=== PATIENT | male | born 1970 | race Caucasian/White ===

== ENCOUNTER → 2019-04-09 | Outpatient (CLI) | payer BC, SELFPAY ==
[2019-04-09 12:23] LABS: Absolute Lymphocyte Count 1.24 X10^3/ul (0.83-4.51); Absolute Neutrophil Count 2.3 X10^3/uL (2.0-7.7); Basophil# 0.02 X10^3/uL; Basophil% 0.5 % (0-1); Eosinophil# 0.13 X10^3/uL; Eosinophils% 3.2 % (0-5); Hematocrit 46.6 % (40-54); Hemoglobin 15.4 g/dl (13.0-16.5); Lymphocyte # 1.24 X10^3/ul (4.0); Lymphocyte % 30.9 % (19-41); Mean Corpuscular Hgb 30.8 pg (27.0-32.0); Mean Corpuscular Volume 93.2 fL (80-94); Mean Platelet Vol. 10.4 fl (6.2-12.0); Monocyte# 0.33 X10^3/uL; Monocyte% 8.2 % (0-10); Neutrophil # 2.28 X10^3/uL (2.7-7.7); POSITIVE COUNT NO; POSITIVE DIFFERENTIAL NO; POSITIVE MORPHOLOGY NO; Platelet Count 263 K/mm3 (150-450); RBC Distribution Width CV 12.8 % (11.6-14.6); RBC Distribution Width SD 42.7 fl (35.1-43.9)
[2019-04-09 12:54] LABS: ALB/GLOB Ratio 1.2 RATIO (0.9-2.4); AST(SGOT) 17 U/L (15-37); Alanine Aminotransfer ALT/SGPT 32 U/L (16-61); Albumin, Serum 4.1 g/dL (3.2-5.0); Alkaline Phosphatase 87 U/L (45-117); Anion Gap 6 (5-15); BUN 15 mg/dL (7-18); BUN/Creat Ratio 13.8 RATIO (10-20); Calcium,Total 8.9 mg/dL (8.5-10.1); Chloride 107 mmol/L (98-107); Cholesterol 203 mg/dL (200); Creatinine, Serum 1.09 mg/dL (0.70-1.30); EST Glomerular Filtration Rate 76 mL/min (>60); Est Glom Filt Rate - Afr Amer 92 mL/min (>60); Globulin 3.4 g/dL (2.2-4.2); Glucose 84 mg/dL (74-106); High Density Lipoprotein 41 mg/dL; Potassium 4.7 mmol/L (3.5-5.1); Protein, Total 7.5 g/dL (6.4-8.2); Sodium Level 140 mmol/L (136-145); Thyroid Stim Hormone (TSH) 2.03 uIU/mL (0.358-3.74); Triglycerides 106 mg/dL; Very Low Density Lipoprotein 21 mg/dL (5-40)
== END | disposition home or self-care (01) ==
LOC: MFPLAB 10:04
PROVIDERS: Family Provider Family Medicine; PCP Family Medicine; Referring Provider Family Medicine; Visit Provider Family Medicine
DX: Z00.00 Encounter for general adult medical examination without abnormal findings (principal)
CPT/HCPCS: 36415; 80053; 80061; 84443; 85025

== ENCOUNTER → 2019-10-30 10:28 | Outpatient (CLI) | payer BC, SELFPAY ==
[2019-10-30 12:25] LABS: Absolute Lymphocyte Count 1.07 X10^3/uL (0.83-4.51); Absolute Neutrophil Count 2.8 X10^3/uL (2.0-7.7); Basophil# 0.05 X10^3/uL; Basophil% 1.1 % (0-1); Eosinophil# 0.15 X10^3/uL; Eosinophils% 3.4 % (0-5); Hematocrit 46.8 % (40-54); Hemoglobin 15.3 g/dL (13.0-16.5); Lymphocyte # 1.07 X10^3/ul (4.0); Lymphocyte % 23.9 % (19-41); Mean Corp Hgb Conc 32.7 g/dL (32-36); Mean Corpuscular Hgb 30.5 pg (27.0-32.0); Mean Corpuscular Volume 93.4 fL (80-94); Mean Platelet Vol. 10.2 fl (6.2-12.0); Monocyte% 8.9 % (0-10); NRBC Flagged by Analyzer 0 % (0-5); Neutrophil # 2.78 X10^3/uL (2.7-7.7); Neutrophil % 62.3 % (47-70); Platelet Count 323 K/mm3 (150-450); RBC Distribution Width CV 12.3 % (11.6-14.6); RBC Distribution Width SD 42.5 fl (35.1-43.9); Red Blood Count 5.01 M/mm3 (4.6-6.2); White Blood Count 4.5 K/mm3 (4.4-11.0)
[2019-10-30 12:27] LABS: Erythrocyte Sedimentation Rate 20 mm/hr (0-20)
[2019-10-30 12:36] LABS: ALB/GLOB Ratio 0.9 RATIO (0.9-2.4); AST(SGOT) 22 U/L (15-37); Alanine Aminotransfer ALT/SGPT 51 U/L (16-61); Albumin, Serum 4.1 g/dL (3.2-5.0); Alkaline Phosphatase 117 U/L (45-117); Anion Gap 5 (5-15); BUN 19 mg/dL (7-18); BUN/Creat Ratio 17.3 RATIO (10-20); Calcium,Total 9.5 mg/dL (8.5-10.1); Chloride 106 mmol/L (98-107); EST Glomerular Filtration Rate 75 mL/min (>60); Est Glom Filt Rate - Afr Amer 91 mL/min (>60); Globulin 4.4 g/dL (2.2-4.2); Glucose 95 mg/dL (74-106); Potassium 4.9 mmol/L (3.5-5.1); Protein, Total 8.5 g/dL (6.4-8.2); Rheumatoid Factor < 10.0 IU/mL (<15); Sodium Level 139 mmol/L (136-145)
[2019-10-30 12:47] LABS: Vitamin D,25 Hydroxy 25.3 ng/mL (29.95-100.01)
[2019-10-31 15:47] LABS: ANTINUCLEAR ANTIBODIES DIRECT Positive (Negative)
== END ==
PROVIDERS: Family Provider Family Medicine; PCP Family Medicine; Referring Provider Family Medicine; Visit Provider Nurse Practitioner Family
DX: M79.10 Myalgia, unspecified site (principal)
CPT/HCPCS: 36415; 80053; 82306; 84443; 85025; 85652; 86038; 86140; 86431

== ENCOUNTER → 2019-12-17 14:27 | Outpatient (CLI) | payer BC, SELFPAY ==
[2019-12-17 15:49] LABS: EXAGEN MAILED SPECIMEN
[2019-12-17 17:39] LABS: Absolute Lymphocyte Count 1.44 X10^3/uL (0.83-4.51); Absolute Neutrophil Count 3.8 X10^3/uL (2.0-7.7); Basophil# 0.06 X10^3/uL; Eosinophil# 0.16 X10^3/uL; Eosinophils% 2.7 % (0-5); Hematocrit 44.3 % (40-54); Hemoglobin 14.7 g/dL (13.0-16.5); Lymphocyte # 1.44 X10^3/ul (4.0); Lymphocyte % 24.4 % (19-41); Mean Corp Hgb Conc 33.2 g/dL (32-36); Mean Corpuscular Hgb 30.9 pg (27.0-32.0); Mean Corpuscular Volume 93.1 fL (80-94); Mean Platelet Vol. 9.9 fl (6.2-12.0); Monocyte# 0.49 X10^3/uL; Monocyte% 8.3 % (0-10); NRBC Flagged by Analyzer 0 % (0-5); Neutrophil # 3.75 X10^3/uL (2.7-7.7); Neutrophil % 63.6 % (47-70); Platelet Count 299 K/mm3 (150-450); RBC Distribution Width CV 12.4 % (11.6-14.6); RBC Distribution Width SD 42.3 fl (35.1-43.9); Red Blood Count 4.76 M/mm3 (4.6-6.2); White Blood Count 5.9 K/mm3 (4.4-11.0)
[2019-12-17 17:45] LABS: Color, Urine Yellow (Yellow); Glucose, Dipstick Normal (Normal); Ketone-Dipstick Negative (Negative); Leukocyte Esterase-Dipstick Negative /ul (Negative); Nitrite-Dipstick Negative (Negative); Occult Blood-Urine Negative /ul (Negative); Protein-Dipstick Negative (Negative); Specific Gravity, Urine 1.015 (1.002-1.030); Urine Bilirubin Dipstick Negative (Negative); Urine Clarity Sl. Cloudy (Clear); Urine Urobilinogen Normal (Normal)
[2019-12-17 18:06] LABS: AST(SGOT) 25 U/L (15-37); Alanine Aminotransfer ALT/SGPT 48 U/L (16-61); Albumin, Serum 4.1 g/dL (3.2-5.0); Alkaline Phosphatase 114 U/L (45-117); Anion Gap 5 (5-15); BUN 18 mg/dL (7-18); BUN/Creat Ratio 17.6 RATIO (10-20); Calcium,Total 9.5 mg/dL (8.5-10.1); Chloride 105 mmol/L (98-107); Creatinine, Serum 1.02 mg/dL (0.70-1.30); EST Glomerular Filtration Rate 82 mL/min (>60); Est Glom Filt Rate - Afr Amer 99 mL/min (>60); Globulin 4.3 g/dL (2.2-4.2); Glucose 82 mg/dL (74-106); Potassium 4.1 mmol/L (3.5-5.1); Protein, Total 8.4 g/dL (6.4-8.2); Sodium Level 137 mmol/L (136-145)
[2019-12-17 18:13] LABS: Protein, Urine (Random) 13.4 mg/dL (<11.9); Protein:Creat Ratio 113 mg/g CRE (0-200)
[2019-12-18 11:24] LABS: Hepatitis B Surface Antibody Non-Reactive; Hepatitis B Surface Antigen Non-Reactive (Nonreactive); Hepatitis C Antibody Non-Reactive (Nonreactive)
[2019-12-19 09:11] LABS: Hepatitis B Core AB IgM Negative (Negative)
== END ==
LOC: MTLAB 14:31
PROVIDERS: PCP Family Medicine; Referring Provider Internal Medicine Rheumatology; Visit Provider Internal Medicine Rheumatology
DX: M06.4 Inflammatory polyarthropathy (principal); R76.8 Other specified abnormal immunological findings in serum
CPT/HCPCS: 36415; 80053; 81002; 82570; 84156; 85025; 86705; 86706; 86803; 87340

== ENCOUNTER → 2020-08-26 17:24 | Outpatient (CLI) | payer BC, SELFPAY | PROVIDERS: PCP Family Medicine | DX: Z01.812 Encounter for preprocedural laboratory examination (principal); Z11.59 Encounter for screening for other viral diseases | CPT/HCPCS: 87635; C9803; U0003 ==

== ENCOUNTER → 2020-08-27 11:22 | Outpatient (CLI) | payer BC, SELFPAY ==
[2020-08-27 15:25] LABS: Absolute Lymphocyte Count 1.17 X10^3/uL (0.83-4.51); Basophil# 0.02 X10^3/uL; Basophil% 0.5 % (0-1); Eosinophil# 0.17 X10^3/uL; Eosinophils% 4.6 % (0-5); Hematocrit 45.9 % (40-54); Hemoglobin 15.3 g/dL (13.0-16.5); Lymphocyte # 1.17 X10^3/ul (4.0); Lymphocyte % 31.4 % (19-41); Mean Corp Hgb Conc 33.3 g/dL (32-36); Mean Corpuscular Hgb 31.4 pg (27.0-32.0); Mean Corpuscular Volume 94.1 fL (80-94); Mean Platelet Vol. 10.6 fl (6.2-12.0); Monocyte# 0.38 X10^3/uL; Monocyte% 10.2 % (0-10); NRBC Flagged by Analyzer 0 % (0-5); Neutrophil # 1.99 X10^3/uL (2.7-7.7); Neutrophil % 53.3 % (47-70); Platelet Count 285 K/mm3 (150-450); RBC Distribution Width CV 11.8 % (11.6-14.6); RBC Distribution Width SD 40.8 fl (35.1-43.9); Red Blood Count 4.88 M/mm3 (4.6-6.2); White Blood Count 3.7 K/mm3 (4.4-11.0)
[2020-08-27 15:41] LABS: Anion Gap 5 (5-15); BUN 14 mg/dL (7-18); BUN/Creat Ratio 13.6 RATIO (10-20); Calcium,Total 9.2 mg/dL (8.5-10.1); Chloride 106 mmol/L (98-107); Creatinine, Serum 1.03 mg/dL (0.70-1.30); EST Glomerular Filtration Rate 81 mL/min (>60); Est Glom Filt Rate - Afr Amer 98 mL/min (>60); Glucose 89 mg/dL (74-106); Potassium 4.3 mmol/L (3.5-5.1); Sodium Level 137 mmol/L (136-145)
== END ==
PROVIDERS: PCP Family Medicine; Referring Provider Family Medicine; Visit Provider Family Medicine
DX: Z01.818 Encounter for other preprocedural examination (principal)
CPT/HCPCS: 36415; 80048; 85025

== ENCOUNTER → 2023-08-18 | Outpatient (CLI) | payer OTHER, SELFPAY ==
[2023-08-18 10:04] LABS: Hematocrit 48.2 % (40-54); Hemoglobin 16.1 g/dL (13.0-16.5); Mean Corp Hgb Conc 33.4 g/dL (32-36); Mean Corpuscular Hgb 32.1 pg (27.0-32.0); Platelet Count 272 K/mm3 (150-450); RBC Distribution Width CV 12.1 % (11.6-14.6); RBC Distribution Width SD 42.4 fl (35.1-43.9); Red Blood Count 5.02 M/mm3 (4.6-6.2); White Blood Count 4.2 K/mm3 (4.4-11.0)
[2023-08-18 10:19] LABS: ALB/GLOB Ratio 1.1 RATIO (0.9-2.4); AST(SGOT) 14 U/L (15-37); Alanine Aminotransfer ALT/SGPT 33 U/L (16-61); Albumin, Serum 4.3 g/dL (3.2-5.0); Alkaline Phosphatase 88 U/L (45-117); Anion Gap 4 (5-15); BUN 19 mg/dL (7-18); BUN/Creat Ratio 16.1 RATIO (10-20); Calcium,Total 9.6 mg/dL (8.5-10.1); Chloride 107 mmol/L (98-107); Cholesterol 253 mg/dL (200); Creatinine, Serum 1.18 mg/dL (0.70-1.30); EST Glomerular Filtration Rate 68 mL/min (>60); Est Glom Filt Rate - Afr Amer 83 mL/min (>60); Glucose 109 mg/dL (74-106); High Density Lipoprotein 47 mg/dL; Potassium 4.7 mmol/L (3.5-5.1); Protein, Total 8.3 g/dL (6.4-8.2); Sodium Level 138 mmol/L (136-145); Triglycerides 142 mg/dL; Very Low Density Lipoprotein 28 mg/dL (5-40)
[2023-08-18 10:35] LABS: Vitamin D,25 Hydroxy 34.5 ng/mL
== END | disposition home or self-care (01) ==
LOC: MFPLAB 08:49
PROVIDERS: PCP Family Medicine; Visit Provider Family Medicine
DX: Z00.00 Encounter for general adult medical examination without abnormal findings (principal); E55.9 Vitamin D deficiency, unspecified
CPT/HCPCS: 36415; 80053; 80061; 82306; 83036; 85027

== ENCOUNTER 2023-12-08 08:02 | Day surgery (SDC) | payer OTHER, SELFPAY ==
[2023-12-08 08:25] VITALS: BP 127/81; PULSE 67; RESP 16; TEMP 36.8; O2SAT 98; BMI 24.0
[2023-12-08] MEDS: Lactated Ringers 1,000 ML 15 ML IV (08:34)
--- NOTE | 2023-12-08 08:47 | HP.PCM_ITS ---
HPI - General HPI Narrative GABRIELA PAPPAS, is a 53 M who presents for screening colonoscopy. The patient has never had a colonoscopy in the past. He denies any abdominal pain or blood in stool. He has no family history of colon cancer. He is on no blood thinners. [facility] Medical History (Updated 12/07/23 @ 08:41 by Alejandro Manzanares) Non-smoker Ruptured ear drum Shoulder injury Wears glasses Home Medications sildenafil 100 mg tablet 50 mg PO DAILY PRN sexual activity 10/24/23 [History Last Taken Unknown] Allergy/AdvReac Type Severity Reaction Status Date / Time No Known Allergies Allergy Verified 12/08/23 08:25 Social History (Updated 10/24/23 @ 11:02 by Nanci Flores) household members: significant other current occupational status: employed current occupation: [employer] Smoking Status: Never smoker alcohol intake: current alcohol intake frequency: holidays/special occasions only Past Medical/Surgical History Planned Operation Planned Operative Procedure/s: COLONOSCOPY Previous Hospitalizations/Surgeries HX Hospitalizations: No Any Problems With Anesthesia: No You/Your Family Experience Fever (Hyperthermia) With Anes: No Cholinesterase deficiency: No Cardiovascular Hx Hypertension: No Respiratory Hx Sleep Apnea: No Hx Respiratory Tract Infection/Cold (presently): No Do You Snore Loudly (louder than talking or can be heard): No Do You Often Feel Tired/ Fatigued/ Sleepy Dring Daytime?: No Has Anyone Observed You Stop Breathing During Sleep?: No Result (for STOP score): Negative Smoking Status: Never smoker Neurological Does patient have nerve stimulator: No Miscellaneous Recent Exposure to Contagious Disease: No Allergies No Known Allergies Allergy (Verified 12/08/23 08:25) Vital Signs Vital Signs Vital Signs: 12/08/23 08:25 12/08/23 08:25 Temperature 98.2 F Temperature Source Temporal Pulse Rate 67 Respiratory Rate 16 Respiratory Pattern Normal Blood Pressure 127/81 H Blood Pressure Mean 96 Blood Pressure Source Monitor Blood Pressure Position Semi-Fowlers Blood Pressure Location Left Arm Pulse Ox 98 Oxygen Delivery Method Room Air Weight Weight: 163 lb 2.273 oz Body Mass Index (BMI) 24.0 Physical Exam Const alert and oriented x3 HEENT normocephalic Eyes PERRL Resp normal respiratory effort and normal air movement Cardio regular rate and regular rhythm GI soft to palpation, non-tender and non-distended Extremity normal to inspection Assessment & Plan Assessment/Plan (1) Encounter for screening for malignant neoplasm of colon: PLAN: I explained endoscopy in detail to the patient. I explained the risks including but not limited to stroke or heart attack with anesthesia, perforation of the GI tract, bleeding, infection. I explained that any of these could necessitate further emergency surgery. The patient understands and all questions were answered sufficiently. The patient wishes to proceed with procedure. Blue Eddy MD Pager: [facility] [address] [place] [address] [address] [place] [address] Office: Surgery Risks - Colonoscopy Risks Include but are not Limited To: Risks include but are not limited to: Bleeding, perforation requiring further surgery, inability to complete colonoscopy requiring barium enema.
[2023-12-08 09:11] VITALS: BP 127/81; BP 94/75; PULSE 64; RESP 16; TEMP 36.6; O2SAT 97
--- NOTE | 2023-12-08 09:12 | OP.CCLET_ITS ---
12/08/2023 Shashank Vuong [address] [place] [address] Re : Colonoscopy procedure for Gladys Holden Dear Dr. Vuong This procedure was performed on Friday, December 08, 2023. My impressions and recommendations are as follows: Impressions : - The entire examined colon is normal on direct and retroflexion views. - No specimens collected. Recommendations : - Discharge patient to home. - Resume previous diet. - Continue present medications. - Repeat colonoscopy in 10 years for screening purposes. My findings are described in the full procedure note, which is enclosed. If I can be of further assistance, please feel free to contact me at Doctor phone number(s): , Work: . Sincerely, Blue Eddy MD 12/08/2023 9:12:04 AM This report has been signed electronically.
--- NOTE | 2023-12-08 09:12 | OP.COLON_ITS ---
Patient Name: Gladys Holden Procedure Date: 12/08/2023 8:49 AM Date of : 1970 Age: 53 Procedure: Colonoscopy Indications: Screening for colorectal malignant neoplasm Providers: Blue Eddy MD Medicines: Monitored Anesthesia Care Patient Profile: This is a 53 year old male. Refer to note in patient chart for documentation of history and physical. Last Colonoscopy: none. The patient's first colonoscopy is today. Complications: No immediate complications. Procedure: Pre-Anesthesia Assessment: - Prior to the procedure, a History and Physical was performed, and patient medications and allergies were reviewed. The patient's tolerance of previous anesthesia was also reviewed. The risks and benefits of the procedure and the sedation options and risks were discussed with the patient. All questions were answered, and informed consent was obtained. Prior Anticoagulants: The patient has taken no anticoagulant or antiplatelet agents. ASA Grade Assessment: II - A patient with mild systemic disease. After reviewing the risks and benefits, the patient was deemed in satisfactory condition to undergo the procedure. After I obtained informed consent, the scope was passed under direct vision. Throughout the procedure, the patient's blood pressure, pulse, and oxygen saturations were monitored continuously. The Colonoscope was introduced through the anus and advanced to the cecum, identified by appendiceal orifice and ileocecal valve. The colonoscopy was performed without difficulty. The patient tolerated the procedure well. The quality of the bowel preparation was good. The ileocecal valve, appendiceal orifice, and rectum were photographed. Scope In: 8:58:32 AM Scope Withdrawal Time 0 hours 6 minutes 2 seconds Scope Out: 9:08:04 AM Total Procedure Duration Time 0 hours 9 minutes 32 seconds Findings: The entire examined colon appeared normal on direct and retroflexion views. Impression: - The entire examined colon is normal on direct and retroflexion views. - No specimens collected. Recommendation: - Discharge patient to home. - Resume previous diet. - Continue present medications. - Repeat colonoscopy in 10 years for screening purposes. Procedure Code(s): --- Professional --- 01991, Colonoscopy, flexible; diagnostic, including collection of specimen(s) by brushing or washing, when performed (separate procedure) Diagnosis Code(s): --- Professional --- Z12.11, Encounter for screening for malignant neoplasm of colon CPT copyright 2021 [employer]. All rights reserved. The codes documented in this report are preliminary and upon police aide review may be revised to meet current compliance requirements. Blue Eddy MD 12/08/2023 9:12:04 AM This report has been signed electronically. Number of Addenda: 0 Note Initiated On: 12/08/2023 8:49 AM
[2023-12-08 09:15] VITALS: BP 127/81; BP 93/73; PULSE 62; RESP 16; O2SAT 97
[2023-12-08 09:20] VITALS: BP 127/81; BP 98/77; PULSE 64; RESP 16; O2SAT 94
[2023-12-08 09:22] VITALS: BP 106/74; BP 127/81; PULSE 69; RESP 16; TEMP 36.6; O2SAT 94
[2023-12-08 09:32] VITALS: BP 127/81
== END 2023-12-08 10:05 | disposition home or self-care (01) ==
LOC: EN 08:04 → AC 08:06
PROVIDERS: PCP Family Medicine; Referring Provider Family Medicine; Visit Provider Surgery
PROC: 0DJD8ZZ Inspection of Lower Intestinal Tract, Via Natural or Artificial Opening Endoscopic (ICD-10-PCS; CPT 45378; principal; 2023-12-08 08:55)
DX: Z12.11 Encounter for screening for malignant neoplasm of colon (principal)
CPT/HCPCS: 45378; J2405

== ENCOUNTER → 2025-02-05 | Outpatient (CLI) | payer SELFPAY | END | disposition home or self-care (01) | LOC: MFPLAB 12:16 → LABSPEC 12:19 | PROVIDERS: PCP Family Medicine; Referring Provider Family Medicine; Visit Provider Family Medicine | DX: N39.0 Urinary tract infection, site not specified (principal) | CPT/HCPCS: 87086; 87088; 87186 ==

== ENCOUNTER 2025-04-11 16:20 | Outpatient (CLI) | payer SELFPAY ==
[2025-04-11 16:24] LABS: Bacteria 0 SEEN /hpf (None Seen); Mucous, Urine 0 SEEN /hpf (<or=2+)
[2025-04-11 18:05] LABS: Absolute Lymphocyte Count 1.93 X10^3/uL (0.83-4.51); Absolute Neutrophil Count 2.8 X10^3/uL (2.0-7.7); Basophil# 0.04 X10^3/uL; Basophil% 0.7 % (0-1); Eosinophil# 0.13 X10^3/uL; Eosinophils% 2.4 % (0-5); Hematocrit 44.2 % (40-54); Hemoglobin 14.9 g/dL (13.0-16.5); Lymphocyte # 1.93 X10^3/ul (0.83-4.51); Lymphocyte % 35.5 % (19-41); Mean Corp Hgb Conc 33.7 g/dL (32-36); Mean Corpuscular Hgb 31.4 pg (27.0-32.0); Mean Corpuscular Volume 93.2 fL (80-94); Mean Platelet Vol. 9.9 fl (6.2-12.0); Monocyte# 0.49 X10^3/uL; NRBC Flagged by Analyzer 0 % (0-5); Neutrophil # 2.84 X10^3/uL (2.7-7.7); Neutrophil % 52.2 % (47-70); Platelet Count 261 K/mm3 (150-450); RBC Distribution Width CV 12.5 % (11.6-14.6); Red Blood Count 4.74 M/mm3 (4.6-6.2); White Blood Count 5.4 K/mm3 (4.4-11.0)
[2025-04-11 18:26] LABS: ALB/GLOB Ratio 1.6 RATIO (0.9-2.4); AST(SGOT) 28 U/L (<=37); Alanine Aminotransfer ALT/SGPT 39 U/L (<=46); Albumin, Serum 4.7 g/dL (3.5-5.0); Alkaline Phosphatase 79 U/L (40-129); Anion Gap 12 (5-15); BUN 19 mg/dL (4-19); BUN/Creat Ratio 16.7 RATIO (10-20); Calcium,Total 9.6 mg/dL (7.6-11.0); Carbon Dioxide 23.3 mmol/L (21.0-32.0); Chloride 103 mmol/L (98-108); Cholesterol 242 mg/dL (<=200); Creatinine, Serum 1.14 mg/dL (0.70-1.20); EST Glomerular Filtration Rate 76 (>60); Glucose 84 mg/dL (70-99); High Density Lipoprotein 53 mg/dL; Low Density Lipoprotein Calc. 175 mg/dL; Protein, Total 7.7 g/dL (5.9-8.4); Sodium Level 138 mmol/L (133-145); Triglycerides 70 mg/dL; Very Low Density Lipoprotein 14 mg/dL (5-40); cholesterol:hdl ratio screen 4.61
[2025-04-11 18:29] LABS: Glucose, Dipstick Normal (Normal); Ketone-Dipstick Negative (Negative); Leukocyte Esterase-Dipstick 25 /ul (Negative); Nitrite-Dipstick Negative (Negative); Occult Blood-Urine Negative /ul (Negative); Protein-Dipstick 15 mg/dl (Negative); Urine Bilirubin Dipstick Negative (Negative); Urine Urobilinogen Normal (Normal)
[2025-04-11 18:31] LABS: Vitamin D,25 Hydroxy 32.5 ng/mL (30-100)
[2025-04-11 18:44] LABS: Color, Urine Yellow (Yellow); Urine Clarity Sl Cldy (Clear)
[2025-04-11 20:06] LABS: Red Blood Cells-Urine 0-5 SEEN /hpf (0-5); Squamous Epithelial Cells - UA 0-5 SEEN /hpf (0-5); White Blood Cells 0-5 SEEN /hpf (0-5)
== END 2025-04-11 23:59 | disposition home or self-care (01) ==
LOC: MTLAB 16:21
PROVIDERS: PCP Family Medicine; Referring Provider Family Medicine; Visit Provider Family Medicine
DX: Z00.00 Encounter for general adult medical examination without abnormal findings (principal); Z12.5 Encounter for screening for malignant neoplasm of prostate
CPT/HCPCS: 36415; 80053; 80061; 81001; 82306; 84153; 84443; 85025; G0103

== ENCOUNTER → 2025-10-03 | Outpatient (CLI) | payer SELFPAY ==
[2025-10-03 17:39] LABS: Hematocrit 44.4 % (40-54); Hemoglobin 15.1 g/dL (13.0-16.5); Immature Granulocytes Count 0.010 X10^3/uL (0.0-0.0); Mean Corp Hgb Conc 34.0 g/dL (32-36); Mean Corpuscular Volume 93.3 fL (80-94); Mean Platelet Vol. 9.9 fl (6.2-12.0); NRBC Flagged by Analyzer 0 % (0-5); Platelet Count 275 K/mm3 (150-450); RBC Distribution Width CV 11.7 % (11.6-14.6); RBC Distribution Width SD 40.3 fl (35.1-43.9); Red Blood Count 4.76 M/mm3 (4.6-6.2); White Blood Count 6.1 K/mm3 (4.4-11.0)
--- OUTSIDE RECORDS SUMMARY | 2025-10-03 17:51 | XMS RPT_ITS | CCD ---
Author Organization [facility] Care Team Providers Care Ornament Stitcher Name Role Phone Dr. Tristen Perez Primary Care Provider Nanci Flores Attending Provider Unavailable Dr. Tristen Perez Referring Provider Dr. Blue Eddy Attending Provider [phone] Dr. Blue Eddy Other Provider ELADIO MCDONNELL MD Admitting Unavailable TRISTEN PEREZ Referring Unavailable TRISTEN PEREZ Consulting Unavailable ELADIO MCDONNELL MD Attending Unavailable ELADIO MCDONNELL MD Primary Care Unavailable PROVIDER, UNKNOWN Consulting Unavailable Dr. Tristen Perez MD Primary Care Provider [phone] Dr. Tristen Perez MD Attending Provider Dr. Tristen Perez MD Referring Provider Tristen Perez Referring Unavailable Tristen Perez Primary Care Unavailable Tristen Perez Attending Unavailable Tristen Perez Referring Unavailable Tristen Perez Primary Care Unavailable Tristen Perez Attending Unavailable Medications Current Medications Medication Drug Class(es) Dates Sig (Normalized) Sig (Original) sildenafil 100 mg oral tablet (3 sources) Phosphodiesterase 5 Inhibitor Start: 10-24-2023 Sildenafil 100 mg tablet Active 50 mg PO DAILY as needed for sexual activity October 24, 2023 1:00am administer 30 minutes to 4 hours before activity Start: 10-24-2023 Sildenafil Act tamara 50 MG PO DAILY October 24, 2023 12:00am administer 30 minutes to 4 hours before activity Problems Problem Classification Problem Date Documented Da te Episodic/Chronic Other screening for suspected conditions (not mental disorders or infectious disease) (4 sources) Patient encounter status; Translations: [Encounter for screening for malignant neoplasm of colon] 10-24-2023 Episodic Urinary tract infections (1 source) Urinary tract infection, site not specified; Translations: [Urinary tract infection, site not specified] Onset: 02-13-2025 Episodic Results Test Name Value Interpretation Reference Range Facility Absolute lymphocyte countOrd ered By: Tristen Perez on 04-11-2025 Lymphocytes Auto (Unsp spec) [#/Vol] 1.93 10*3/uL 0.83-4.51 [facility] Absolute neutrophil countOrd ered By: Tristen Perez on 04-11-2025 Neutrophils (Bld) [#/Vol] 2.8 10*3/uL 2.0-7.7 [facility] Anion gap in Serum or Plasma Ordered By: Tristen Perez on 04-11-2025 Anion gap [Moles/Vol] 12 mmol/L 5-15 [facility] Automated lymphocyte count a s percentage of total leukocytesOrdered By: Tristen Perez on 04-11-2025 Lymphocytes/100 WBC Auto (Unsp spec) 35.5 % 19- [facility] BUN/creatinine ratioOrdered By: Tristen Perez on 04-11-2025 Urea nitrogen/Creatinine [Mass ratio] 16.7 mg/mg 10-20 [facility] Basophil percentageOrdered B y: Tristen Perez on 04-11-2025 Basophils/100 WBC (Bld) 0.7 % 0-1 [facility] Bilirubin Test strip Ql (U)O rdered By: Tristen Perez on 04-11-2025 Bilirubin Ql (U) Negative Negative [facility] Bilirubin, totalOrdered By: Tristen Perez on 04-11-2025 Bilirubin [Mass/Vol] 0.60 mg/dL 0.00-1.30 [facility] CBC W/Diff, Automatedon 03-21 Absolute Lymph 1.93 X10 3/uL Normal 0.83-4.51 [facility] Comment on above: Order Comment: Order Date: 04/11/25 Order Info: [id number] - CBCD Performed By: #### L 500.4100, L501.9520, L100.0100, L501.9910, L500.4050 #### [facility] [address] [place], [address] Absolute Neut 2.8 X10 3/uL Normal 2.0-7.7 [facility] Comment on above: Order Comment: Order Date: 04/11/25 Order Info: [id number] - CBCD Performed By: #### L 500.4100, L501.9520, L100.0100, L501.9910, L500.4050 #### [facility] [address] [place], [address] Basophils/100 WBC (Bld) 0.7 % Normal 0-1 [facility] Comment on above: Order Comment: Order Date: 04/11/25 Order Info: 0184-1 - CBCD Performed By: #### L 500.4100, L501.9520, L100.0100, L501.9910, L500.4050 #### [facility] [address] [place], [address] Eosinophils/100 WBC (Bld) 2.4 % Normal 0-5 [facility] Comment on above: Order Comment: Order Date: 04/11/25 Order Info: [id number] - CBCD Performed By: #### L 500.4100, L501.9520, L100.0100, L501.9910, L500.4050 #### [facility] [address] [place], [address] Erythrocyte distribution width (RBC) [Ratio] 12.5 % Normal 11.6-14.6 [facility] Comment on above: Order Comment: Order Date: 04/11/25 Order Info: 0184-1 - CBCD Performed By: #### L 500.4100, L501.9520, L100.0100, L501.9910, L500.4050 #### [facility] [address] [place], [address] Hematocrit (Bld) [Volume fraction] 44.2 % Normal 40-54 [facility] Comment on above: Order Comment: Order Date: 04/11/25 Order Info: 0184-1 - CBCD Performed By: #### L 500.4100, L501.9520, L100.0100, L501.9910, L500.4050 #### [facility] [address] [place], [address] Hemoglobin (Bld) [Mass/Vol] 14.9 g/dL Normal 13.0-16.5 [facility] Comment on above: Order Comment: Order Date: 04/11/25 Order Info: 0184-1 - CBCD Performed By: #### L 500.4100, L501.9520, L100.0100, L501.9910, L500.4050 #### [facility] [address] [place], [address] IG% 0.200 Normal 0.0-0.9 [facility] Comment on above: Order Comment: Order Date: 04/11/25 Order Info: 0184-1 - CBCD Result Comment: IG% - Immature Granulocytes (promyelocytes, myelocytes and metamyelocytes) > 1% indicates that a LEFT SHIFT is Present. Performed By: #### L 500.4100, L501.9520, L100.0100, L501.9910, L500.4050 #### [facility] [address] [place], [address] Lymphocytes/100 WBC (Bld) 35.5 % Normal 19-41 [facility] Comment on above: Order Comment: Order Date: 04/11/25 Order Info: 0184-1 - CBCD Performed By: #### L 500.4100, L501.9520, L100.0100, L501.9910, L500.4050 #### [facility] [address] [place], [address] MCH (RBC) [Entitic mass] 31.4 pg Normal 27.0-32.0 [facility] Comment on above: Order Comment: Order Date: 04/11/25 Order Info: 0184-1 - CBCD Performed By: #### L 500.4100, L501.9520, L100.0100, L501.9910, L500.4050 #### [facility] [address] [place], [address] MCHC (RBC) [Mass/Vol] 33.7 g/dL Normal 32-36 [facility] Comment on above: Order Comment: Order Date: 04/11/25 Order Info: 0184-1 - CBCD Performed By: #### L 500.4100, L501.9520, L100.0100, L501.9910, L500.4050 #### [facility] [address] [place], [address] MCV (RBC) [Entitic vol] 93.2 fL Normal 80-94 [facility] Comment on above: Order Comment: Order Date: 04/11/25 Order Info: 0184-1 - CBCD Performed By: #### L 500.4100, L501.9520, L100.0100, L501.9910, L500.4050 #### [facility] [address] [place], [address] Monocytes/100 WBC (Bld) 9.0 % Normal 0-10 [facility] Comment on above: Order Comment: Order Date: 04/11/25 Order Info: 0184-1 - CBCD Performed By: #### L 500.4100, L501.9520, L100.0100, L501.9910, L500.4050 #### [facility] [address] [place], [address] Neutrophils/100 WBC (Bld) 52.2 % Normal 47-70 [facility] Comment on above: Order Comment: Order Date: 04/11/25 Order Info: 0184-1 - CBCD Performed By: #### L 500.4100, L501.9520, L100.0100, L501.9910, L500.4050 #### [facility] [address] [place], [address] Nucleated RBC (Bld) [#/Vol] 0 10*3/uL Normal 0-5 [facility] Comment on above: Order Comment: Order Date: 04/11/25 Order Info: 0184-1 - CBCD Performed By: #### L 500.4100, L501.9520, L100.0100, L501.9910, L500.4050 #### [facility] [address] [place], [address] Platelet mean volume (Bld) [Entitic vol] 9.9 fL Normal 6.2-12.0 [facility] Comment on above: Order Comment: Order Date: 04/11/25 Order Info: 0184-1 - CBCD Performed By: #### L 500.4100, L501.9520, L100.0100, L501.9910, L500.4050 #### [facility] [address] [place], [address] Platelets (Bld) [#/Vol] 261 10*3/uL Normal 150-450 [facility] Comment on above: Order Comment: Order Date: 04/11/25 Order Info: 0184-1 - CBCD Performed By: #### L 500.4100, L501.9520, L100.0100, L501.9910, L500.4050 #### [facility] [address] [place], [address] RBC (Bld) [#/Vol] 4.74 10*6/uL Normal 4.6-6.2 [facility] Comment on above: Order Comment: Order Date: 04/11/25 Order Info: 0184-1 - CBCD Performed By: #### L 500.4100, L501.9520, L100.0100, L501.9910, L500.4050 #### [facility] [address] [place], [address] RDW SD 43.0 fl Normal 35.1-43.9 [facility] Comment on above: Order Comment: Order Date: 04/11/25 Order Info: 0184-1 - CBCD Performed By: #### L 500.4100, L501.9520, L100.0100, L501.9910, L500.4050 #### [facility] [address] [place], [place], [address] WBC (Bld) [#/Vol] 5.4 10*3/uL Normal 4.4-11.0 [facility] Comment on above: Order Comment: Order Date: 04/11/25 Order Info: [id number]- - CBCD Performed By: #### L 500.4100, L501.9520, L100.0100, L501.9910, L500.4050 #### [facility] [address] [facility] [place], [place], [id number] Calculated very low density lipoprotein (VLDL) cholesterol measurementOrdered By: Tristen Perez on 04-11-2025 Calculated very low density lipoprotein (VLDL) cholesterol measurement 14 mg/dL 5-40 [facility] Carbon dioxide, total [Moles /volume] in Central venous bloodOrdered By: Tristen Perez on 04-11-2025 CO2 [Moles/Vol] 23.3 mmol/L 21.0-32.0 [facility] Chloride assayOrdered By: Nirali Perez on 04-11-2025 Chloride [Moles/Vol] 103 mmol/L 98-108 [facility] Comprehensive Metabolic Prof ilon 04-11-2025 Albumin [Mass/Vol] 4.7 g/dL Normal 3.5-5.0 [facility] Comment on above: Order Comment: Order Date: 04/11/25 Order Info: [id number] - CMP Order Info: [id number] - LIPID Order Info: [id number] - TSH Order Info: 2857-1 - PSA Performed By: #### L 500.4100, L501.9520, L100.0100, L501.9910, L500.4050 #### [facility] [address] [place], [address] Albumin/Globulin [Mass ratio] 1.6 {ratio} Normal 0.9-2.4 [facility] Comment on above: Order Comment: Order Date: 04/11/25 Order Info: 86-1 - CMP Order Info: [id number] - LIPID Order Info: [id number] - TSH Order Info: 2856-1 - PSA Performed By: #### L 500.4100, L501.9520, L100.0100, L501.9910, L500.4050 #### [facility] [address] [place], [address] ALK PHOS 79 U/L Normal 40-129 [facility] Comment on above: Order Comment: Order Date: 04/11/25 Order Info: 785-1 - CMP Order Info: - LIPID Order Info: [id number] - TSH Order Info: 1 - PSA Performed By: #### L 500.4100, L501.9520, L100.0100, L501.9910, L500.4050 #### [facility] [address] [place], [address] ALT [Catalytic activity/Vol] 39 U/L Normal <=46 [facility] Comment on above: Order Comment: Order Date: 04/11/25 Order Info: 785- - CMP Order Info: [id number] - LIPID Order Info: [id number] - TSH Order Info: 2856-1 - PSA Performed By: #### L 500.4100, L501.9520, L100.0100, L501.9910, L500.4050 #### [facility] [address] [place], [address] AST [Catalytic activity/Vol] 28 U/L Normal <=37 [facility] Comment on above: Order Comment: Order Date: 04/11/25 Order Info: 86-1 - CMP Order Info: [id number] - LIPID Order Info: 3 - TSH Order Info: 2856-11 - PSA Performed By: #### L 500.4100, L501.9520, L100.0100, L501.9910, L500.4050 #### [facility] [address] [place], [address] Bilirubin [Mass/Vol] 0.60 mg/dL Normal 0.00-1.30 [facility] Comment on above: Order Comment: Order Date: 04/11/25 Order Info: 86-1 - CMP Order Info: [id number] - LIPID Order Info: [id number] - TSH Order Info: 2856-11 - PSA Performed By: #### L 500.4100, L501.9520, L100.0100, L501.9910, L500.4050 #### [facility] [address] [place], [address] BUN/CRE 16.7 RATIO Normal 10-20 [facility] Comment on above: Order Comment: Order Date: 04/11/25 Order Info: 785-11 - CMP Order Info: - LIPID Order Info: [id number] - TSH Order Info: 2856-11 - PSA Performed By: #### L 500.4100, L501.9520, L100.0100, L501.9910, L500.4050 #### [facility] [address] [place], [address] Calcium [Mass/Vol] 9.6 mg/dL Normal 7.6-11.0 [facility] Comment on above: Order Comment: Order Date: 04/11/25 Order Info: 1 - CMP Order Info: [id number] - LIPID Order Info: [id number] - TSH Order Info: 2856-11 - PSA Performed By: #### L 500.4100, L501.9520, L100.0100, L501.9910, L500.4050 #### [facility] [address] [place], [address] Chloride [Moles/Vol] 103 mmol/L Normal 98-108 [facility] Comment on above: Order Comment: Order Date: 04/11/25 Order Info: 785- - CMP Order Info: - LIPID Order Info: [id number] - TSH Order Info: 1 - PSA Performed By: #### L 500.4100, L501.9520, L100.0100, L501.9910, L500.4050 #### [facility] [address] [place], [address] CO2 [Moles/Vol] 23.3 mmol/L Normal 21.0-32.0 [facility] Comment on above: Order Comment: Order Date: 04/11/25 Order Info: 785-11 - CMP Order Info: - LIPID Order Info: [id number] - TSH Order Info: 1 - PSA Performed By: #### L 500.4100, L501.9520, L100.0100, L501.9910, L500.4050 #### [facility] [address] [place], [address] Creatinine [Mass/Vol] 1.14 mg/dL Normal 0.70-1.20 [facility] Comment on above: Order Comment: Order Date: 04/11/25 Order Info: 785-11 - CMP Order Info: - LIPID Order Info: [id number] - TSH Order Info: 2856-11 - PSA Performed By: #### L 500.4100, L501.9520, L100.0100, L501.9910, L500.4050 #### [facility] [address] [place], [address] GAP 12 Normal 5-15 [facility] Comment on above: Order Comment: Order Date: 04/11/25 Order Info: 07 - CMP Order Info: - LIPID Order Info: [id number] - TSH Order Info: [id number] - PSA Performed By: #### L 500.4100, L501.9520, L100.0100, L501.9910, L500.4050 #### [facility] [address] [place], [address] GFR/1.73 sq M.predicted among non-blacks MDRD (S/P/Bld) [Vol rate/Area] 76 mL/min/{1.73_m2} Normal >60 [facility] Comment on above: Order Comment: Order Date: 04/11/25 Order Info: 785-11 - CMP Order Info: - LIPID Order Info: [id number] - TSH Order Info: 2856-11 - PSA Result Comment: mL/m in/1.73m2 CKD-EPI Creatinine Equation (2020) Performed By: #### L 500.4100, L501.9520, L100.0100, L501.9910, L500.4050 #### [facility] [address] [place], [address] Globulin (S) [Mass/Vol] 3.0 g/dL Normal 2.2-4.2 [facility] Comment on above: Order Comment: Order Date: 04/11/25 Order Info: 785-11 - CMP Order Info: - LIPID Order Info: [id number] - TSH Order Info: [id number] - PSA Performed By: #### L 500.4100, L501.9520, L100.0100, L501.9910, L500.4050 #### [facility] [address] [place], [address] Glucose [Mass/Vol] 84 mg/dL Normal 70-99 [facility] Comment on above: Order Comment: Order Date: 04/11/25 Order Info: 785-11 - CMP Order Info: - LIPID Order Info: 3 - TSH Order Info: [id number] - PSA Performed By: #### L 500.4100, L501.9520, L100.0100, L501.9910, L500.4050 #### [facility] [address] [place], [address] Potassium [Moles/Vol] 4.0 mmol/L Normal 3.3-5.1 [facility] Comment on above: Order Comment: Order Date: 04/11/25 Order Info: 86-1 - CMP Order Info: [id number] - LIPID Order Info: [id number] - TSH Order Info: 2856-1 - PSA Performed By: #### L 500.4100, L501.9520, L100.0100, L501.9910, L500.4050 #### [facility] [address] [place], [address] Sodium [Moles/Vol] 138 mmol/L Normal 133-145 [facility] Comment on above: Order Comment: Order Date: 04/11/25 Order Info: 785- - CMP Order Info: - LIPID Order Info: [id number] - TSH Order Info: 1 - PSA Performed By: #### L 500.4100, L501.9520, L100.0100, L501.9910, L500.4050 #### [facility] [address] [place], [address] T PROT 7.7 g/dL Normal 5.9-8.4 [facility] Comment on above: Order Comment: Order Date: 04/11/25 Order Info: 785-11 - CMP Order Info: - LIPID Order Info: [id number] - TSH Order Info: 7-1 - PSA Performed By: #### L 500.4100, L501.9520, L100.0100, L501.9910, L500.4050 #### [facility] [address] [place], [address] Urea nitrogen [Mass/Vol] 19 mg/dL Normal 4-19 [facility] Comment on above: Order Comment: Order Date: 04/11/25 Order Info: 785-1 - CMP Order Info: [id number] - LIPID Order Info: 3 - TSH Order Info: [id number] - PSA Performed By: #### L 500.4100, L501.9514, L100.0100, L501.9961, L500.4050 #### [facility] [address] [place], [address] Eosinophil percentageOrdered By: Tristen Perez on 04-11-2025 Eosinophils/100 WBC (Bld) 2.4 % 0-5 [facility] Erythrocyte distribution wid th ratioOrdered By: Tristen Perez on 04-11-2025 Erythrocyte distribution width (RBC) [Ratio] 12.5 % 11.6-14.6 [facility] Erythrocyte distribution wid th standard deviationOrdered By: Tristen Perez on 04-11-2025 Erythrocyte distribution width (RBC) [Ratio] 43.0 fl 35.1-43.9 [facility] Glomerular filtration rate ( GFR) estimation/1.73 sq m using serum, plasma, or whole bOrdered By: Tristen Perez on 04-11-2025 GFR/1.73 sq M.predicted among non-blacks MDRD (S/P/Bld) [Vol rate/Area] 76 mL/min/{1.73_m2} >60 [facility] Comment on above: mL/min/1.73m2 CKD-EP I Creatinine Equation (2020) Hematocrit Auto (Bld) [Volum e fraction]Ordered By: Tristen Perez on 04-11-2025 Hematocrit (Bld) [Volume fraction] 44.2 % 40-54 [facility] Hemoglobin measurementOrdere d By: Tristen Perez on 04-11-2025 Hemoglobin (Bld) [Mass/Vol] 14.9 g/dL 13.0-16.5 [facility] Immature granulocytes/100 WB C Auto (Bld)Ordered By: Tristen Perez on 04-11-2025 Immature granulocytes/100 WBC (Bld) 0.200 % 0.0-0.9 [facility] Comment on above: IG% - Immature Granu locytes (promyelocytes, myelocytes and metamyelocytes) > 1% indicates that a LEFT SHIFT is Present. Ketones Test strip Ql (U)Ord ered By: Tristen Perez on 04-11-2025 Ketones Ql (U) Negative Negative [facility] LDL calc ser/plasOrdered By: Tristen Perez on 04-11-2025 Cholesterol in LDL [Mass/Vol] 175 mg/dL [facility] Comment on above: Foedgzzsvk=930-114 m g/dL & Higher Octi=220 mg/dL or greater Laboratory - Chemistry and C hemistry - challengeOrdered By: Tristen Perez on 04-11-2025 AST [Catalytic activity/Vol] 28 U/L <38 [facility] Lipid Profileon 04-11-2025 CHOL:HDL 4.61 Normal [facility] Comment on above: Order Comment: Order Date: 04/11/25 Order Info: 785-1 - CMP Order Info: [id number] - LIPID Order Info: 3 - TSH Order Info: [id number] - PSA Performed By: #### L 500.4100, L501.9520, L100.0100, L501.9910, L500.4050 #### [facility] [address] [place], [address] Cholesterol [Mass/Vol] 242 mg/dL High <=200 [facility] Comment on above: Order Comment: Order Date: 04/11/25 Order Info: 785-11 - CMP Order Info: [id number] - LIPID Order Info: 3 - TSH Order Info: [id number] - PSA Result Comment: Chol esterol level, Desirable <200 mg/dL Borderline high cholesterol 200-239 mg/dL High cholesterol >=240 mg/dL Recommendations of the NCEP Adult Treatment Panel for the following risk-cutoff thresholds for the [place] population. Performed By: #### L 500.4100, L501.9520, L100.0100, L501.9910, L500.4050 #### [facility] [address] [place], [address] Cholesterol in HDL [Mass/Vol] 53 mg/dL Normal [facility] Comment on above: Order Comment: Order Date: 04/11/25 Order Info: 07-1 - CMP Order Info: [id number] - LIPID Order Info: [id number] - TSH Order Info: 2857-1 - PSA Result Comment: [place]irt[place] onal Cholesterol Education Program (NCEP) guidelines: <40 mg/dL: Low HDL-cholesterol (major risk factor for CHD) >= 60 mg/dL: High HDL-cholesterol (negative risk factor for CHD) HDL-cholesterol is affected by a number of factors, e.g. smoking, exercise, hormones, sex and age. Performed By: #### L 500.4100, L501.9520, L100.0100, L501.9910, L500.4050 #### [facility] [address] [place], [address] Cholesterol in LDL [Mass/Vol] 175 mg/dL Normal [facility] Comment on above: Order Comment: Order Date: 04/11/25 Order Info: 0786-1 - CMP Order Info: [id number] - LIPID Order Info: [id number] - TSH Order Info: [id number] - PSA Result Comment: Bord alhorv=434-298 mg/dL Higher Wqcx=049 mg/dL or greater Performed By: #### L 500.4100, L501.9520, L100.0100, L501.9910, L500.4050 #### [facility] [address] [place], [address] Cholesterol in VLDL [Mass/Vol] 14 mg/dL Normal 5-40 [facility] Comment on above: Order Comment: Order Date: 04/11/25 Order Info: 0786-1 - CMP Order Info: [id number] - LIPID Order Info: 3 - TSH Order Info: 2851 - PSA Performed By: #### L 500.4100, L501.9520, L100.0100, L501.9910, L500.4050 #### [facility] [address] [place], [address] Triglyceride [Mass/Vol] 70 mg/dL Normal [facility] Comment on above: Order Comment: Order Date: 04/11/25 Order Info: [id number] - CMP Order Info: [id number] - LIPID Order Info: 3 - TSH Order Info: [id number] - PSA Result Comment: The drugs N-Acetylcysteine and Metamizole may falsely depress this assay. Normal range: <150 mg/dL Borderline High: 150-199 mg/dL High: 200-499 mg/dL Very High: >500 mg/dL Performed By: #### L 500.4100, L501.9520, L100.0100, L501.9910, L500.4050 #### [facility] [address] [place], [address] MCV (mean corpuscular volume ) determinationOrdered By: Tristen Perez on 04-11-2025 MCV (RBC) [Entitic vol] 93.2 fL 80-94 [facility] Mean corpuscular hemoglobin (MCH) determinationOrdered By: Tristen Perez on 04-11-2025 MCH (RBC) [Entitic mass] 31.4 pg 27.0-32.0 [facility] Mean corpuscular hemoglobin concentration (MCHC) determinationOrdered By: Tristen Perez on 04-11-2025 MCHC (RBC) [Mass/Vol] 33.7 g/dL 32-36 [facility] Mean platelet volume determi nationOrdered By: Tristen Perez on 04-11-2025 Platelet mean volume (Bld) [Entitic vol] 9.9 fL 6.2-12.0 [facility] Microscopic analysis of urin e for red blood cells (RBC)Ordered By: Tristen Perez on 04-11-2025 Microscopic analysis of urine for red blood cells (RBC) 0-5 SEEN /hpf 0-5 [facility] Monocyte percentageOrdered B y: Tristen Perez on 04-11-2025 Monocytes/100 WBC (Bld) 9.0 % 0-10 [facility] Mucus LM Ql (Urine sed)Order ed By: Tristen Perez on 04-11-2025 Mucus Ql (Urine sed) 0 SEEN /hpf [facility] Neutrophil percentageOrdered By: Tristen Perez on 04-11-2025 Neutrophils/100 WBC (Bld) 52.2 % 47-70 [facility] Nitrite Test strip Ql (U)Ord ered By: Tristen Perez on 04-11-2025 Nitrite Ql (U) Negative Negative [facility] Nucleated red blood cell per centageOrdered By: Tristen Perez on 04-11-2025 Nucleated RBC/100 WBC (Bld) [Ratio] 0 % 0-5 [facility] PSA,Total - Annual Screenon 04-11-2025 PSA,TOT SCREEN 10.90 ng/mL High 0.02-4.00 [facility] Comment on above: Order Comment: Order Date: 04/11/25 Order Info: [id number] - CMP Order Info: [id number] - LIPID Order Info: [id number] - TSH Order Info: [id number] - PSA Result Comment: This test was performed using the [employer] tPSA method. Measured values of a patient??sample can vary depending on the testing procedure used. PSA values determined on patient samples by different testing procedures cannot be used interchangeably. If there is a change in PSA assays while monitoring therapy, sequential testing should be performed to confirm baseline values. Performed By: #### L 500.4100, L501.9520, L100.0100, L501.9910, L500.4050 #### [facility] [address] [place], [place], [id number] Platelet countOrdered By: Nirali Perez on 04-11-2025 Platelets (Bld) [#/Vol] 261 10*3/uL 150-450 [facility] Potassium measurement (mass/ volume)Ordered By: Tristen Perez on 04-11-2025 Potassium (Unsp spec) [Mass/Vol] 4.0 mmol/L 3.3-5.1 [facility] Protein Test strip Ql (U)Ord ered By: Tristen Perez on 04-11-2025 Protein Ql (U) 15 mg/dl High Negative [facility] RBC Auto (Bld) [#/Vol]Ordere d By: Tristen Perez on 04-11-2025 RBC (Bld) [#/Vol] 4.74 10*6/uL 4.6-6.2 [facility] Screening total cholesterol/ high density lipoprotein (HDL) cholesterol ratioOrdered By: Tristen Perez on 04-11-2025 Cholesterol.total/Cholest quinn in HDL [Mass ratio] 4.61 {ratio} [facility] Serum creatinine measurement (mass/volume)Ordered By: Tristen Perez on 04-11-2025 Creatinine [Mass/Vol] 1.14 mg/dL 0.70-1.20 [facility] Serum globulin measurementOr dered By: Tristen Perez on 04-11-2025 Globulin (S) [Mass/Vol] 3.0 g/dL 2.2-4.2 [facility] Serum glucose measurement (m ass/volume)Ordered By: Tristen Perez on 04-11-2025 Glucose [Mass/Vol] 84 mg/dL 70-99 [facility] Serum or plasma alanine clifford otransferase (ALT) measurementOrdered By: Tristen Perez on 04-11-2025 ALT [Catalytic activity/Vol] 39 U/L <47 [facility] Serum or plasma albumin poornima urement (mass/volume)Ordered By: Tristen Perez on 04-11-2025 Albumin [Mass/Vol] 4.7 g/dL 3.5-5.0 [facility] Serum or plasma albumin/glob ulin mass ratioOrdered By: Tristen Perez on 04-11-2025 Albumin/Globulin [Mass ratio] 1.6 {ratio} 0.9-2.4 [facility] Serum or plasma alkaline janes sphatase measurementOrdered By: Tristen Perez on 04-11-2025 ALP [Catalytic activity/Vol] 79 U/L 40-129 [facility] Serum or plasma calcium poornima urement (mass/volume)Ordered By: Tristen Perez on 04-11-2025 Calcium [Mass/Vol] 9.6 mg/dL 7.6-11.0 [facility] Serum or plasma cholesterol in HDL measurement (mass/volume)Ordered By: Tristen Perez on 04-11-2025 Cholesterol in HDL [Mass/Vol] 53 mg/dL >40 [facility] Comment on above: National Cholesterol Education Program (NCEP) guidelines:<40 mg/dL: Low HDL-cholesterol (major risk factor for CHD)>= 60 mg/dL: High HDL-cholesterol (negative risk factor for CHD)HDL-cholesterol is affected by a number of factors, e.g. smoking, exercise, hormones, sex and age. Serum or plasma cholesterol measurement (mass/volume)Ordered By: Tristen Perez on 04-11-2025 Cholesterol [Mass/Vol] 242 mg/dL High <201 [facility] Comment on above: Cholesterol level, D esirable <200 mg/dLBorderline high cholesterol 200-239 mg/dLHigh cholesterol >=240 mg/dLRecommendations of the NCEP Adult Treatment Panel for the following risk-cutoff thresholds for the [place] population. Serum or plasma urea nitroge n measurement (mass/volume)Ordered By: Tristen Perez on 04-11-2025 Urea nitrogen [Mass/Vol] 19 mg/dL 4-19 [facility] Sodium levelOrdered By: Tristen Perez on 04-11-2025 Sodium [Moles/Vol] 138 mmol/L 133-145 [facility] Squamous epithelial cells de tection in urine sediment by light microscopyOrdered By: Tristen Perez on 04-11-2025 Epithelial cells.squamous LM Ql (Urine sed) 0-5 SEEN /hpf 0-5 [facility] TSH DL <= 0.005 mIU/L QnOrde red By: Tristen Perez on 04-11-2025 TSH Qn 2.630 uIU/mL 0.300-4.200 [facility] Thyroid Stim Hormone (TSH)on 04-11-2025 TSH 2.630 uIU/mL Normal 0.300-4.200 [facility] Comment on above: Order Comment: Order Date: 04/11/25 Order Info: [id number] - CMP Order Info: [id number] - LIPID Order Info: [id number] - TSH Order Info: [id number] - PSA Performed By: #### L 500.4100, L501.9520, L100.0100, L501.9910, L500.4050 #### [facility] [address] [place], [address] Total proteinOrdered By: Nicholas Perez on 04-11-2025 Protein [Mass/Vol] 7.7 g/dL 5.9-8.4 [facility] Triglycerides measurementOrd ered By: Tristen Perez on 04-11-2025 Triglyceride [Mass/Vol] 70 mg/dL <199 [facility] Comment on above: The drugs N-Acetylcy steine and Metamizole may falsely depress this assay. Normal range: <150 mg/dLBorderline High: 150-199 mg/dLHigh: 200-499 mg/dLVery High: >500 mg/dL Urinalysis, Completeon 04-11 EPI,SQUAMOUS 0-5 SEEN Normal 0-5 [facility] Comment on above: Order Comment: CLEAN CATCH Performed By: #### L 400.0001, L506.1001 #### [facility] [address] [place], [address] RBC 0-5 SEEN Normal 0-5 [facility] Comment on above: Order Comment: CLEAN CATCH Performed By: #### L 400.0001, L506.1001 #### [facility] [address] [place], [address] WBC 0-5 SEEN Normal 0-5 [facility] Comment on above: Order Comment: CLEAN CATCH Performed By: #### L 400.0001, L506.1001 #### [facility] [address] [place], [address] BACTERIA 0 SEEN Normal None Seen [facility] Comment on above: Order Comment: CLEAN CATCH Performed By: #### L 400.0001, L506.1001 #### [facility] [address] [place], [address] Mucus Ql (Urine sed) 0 SEEN Normal [facility] Comment on above: Order Comment: CLEAN CATCH Performed By: #### L 400.0001, L506.1001 #### [facility] [address] [place], [address] Urine clarityOrdered By: Nicholas Perez on 04-11-2025 Clarity (U) Sl Cldy Clear [facility] Urine color determinationOrd ered By: Tristen Perez on 04-11-2025 Color (U) Yellow Yellow [facility] Urine glucose detectionOrder ed By: Tristen Perez on 04-11-2025 Glucose Ql (U) Normal mg/dl Normal [facility] Urine leukocyte esterase det ection by dipstickOrdered By: Tristen Perez on 04-11-2025 Leukocyte esterase Test strip Ql (U) 25 /ul High Negative [facility] Urine pHOrdered By: Tristen chaudhary on 04-11-2025 pH (U) 5.0 [pH] 5.0 - 8.0 [facility] Urine sediment bacteria coun t by microscopy (number/high power field)Ordered By: Tristen Perez on 04-11-2025 Bacteria LM.HPF (Urine sed) [#/Area] 0 /[HPF] None Seen [facility] Urine specific gravity measu rementOrdered By: Tristen Perez on 04-11-2025 Specific gravity (U) [Rel density] 1.020 1.002-1.030 [facility] Urine urobilinogen measureme ntOrdered By: Tristen Perez on 04-11-2025 Urobilinogen Ql (U) Normal mg/dl Normal [facility] Vitamin D,25 Hydroxyon 04-11 Vitamin D 25-OH 32.5 ng/mL Normal 30-100 [facility] Comment on above: Order Comment: Order Date: 04/11/25 Order Info: [id number] - CMP Order Info: [id number] - LIPID Order Info: [id number] - TSH Order Info: [id number] - PSA Result Comment: Honey min D Status Deficiency: <20 ng/mL (50nmol/L) Insufficiency: 20-30 ng/mL (50-75 nmol/L) Sufficiency: 30-100 ng/mL (75-250 nmol/L) Toxicity: >100 ng/mL (>250 nmol/L) Performed By: #### L 400.0001, L506.1001 #### [facility] [place], [address] White blood cell (WBC) count Ordered By: Tristen Perez on 04-11-2025 WBC (Bld) [#/Vol] 5.4 10*3/uL 4.4-11.0 [facility] White blood cell countOrdere d By: Tristen Perez on 04-11-2025 White blood cell count 0-5 SEEN /hpf 0-5 [facility] Urine Cultureon 02-07-2025 [facility] Order Date: 02/05/25 Order Info: [id number] - CUUR Presumptive E. coli [place] Count >100,000 Presumptive E. coli: REACTION Ampicillin Islt VERA <=2 Ampicillin+Sulbac Islt VERA <=2 S Cefepime Islt VERA <=0.12 S cefTRIAXone Islt VERA <=0.25 S Ciprofloxacin Islt VERA <=0.06 S B-Lactamase Extended Susc Islt NEG Gentamicin Islt VERA <=1 S levoFLOXacin Islt VERA <=0.12 S Meropenem Islt VERA <=0.25 S Pip+Tazo Islt VERA <=4 S TMP SMX Islt VERA <=20 S Normal [facility] Comment on above: Performed By: #### M 100.2200 #### [facility] [address] [place] [address], [address] Urine cultureOrdered By: Nicholas Perez on 02-05-2025 Bacteria identified Cx Nom (U) Presumptive E. coli Abnormal [facility] CBC + DIFFon 01-16-2025 BANDS 2 % Normal 0 - 5 [facility] Comment on above: Performed By: #### 2 28864 ####[facility],[address] [place] [address] 67002 Baso # 0.01 x10EE3/UL Normal 0.00 - 0.10 [facility] Comment on above: Performed By: #### 2 24200 ####[facility],[address] [place] [address] 79499 Basophils/100 WBC (Bld) 0.1 % Normal 0.0 - 2.0 [facility] Comment on above: Performed By: #### 2 59546 ####[facility],[address] [place] [address] 09134 CBC + DIFF Normal [facility] Comment on above: Result Comment: CBC- COMPLETE BLOOD COUNT Performed By: #### 2 19048 ####[facility],[address] [place] [address] 07415 CELL COUNT 100 Normal [facility] Comment on above: Performed By: #### 2 09058 ####[facility],[address] [place] [address] 78909 EO # 0.07 x10EE3/UL Normal 0.00 - 0.50 [facility] Comment on above: Performed By: #### 2 17638 ####[facility],[address] [place] [address] 01618 Eosinophils/100 WBC (Bld) 0.4 % Normal 0.0 - 7.0 [facility] Comment on above: Performed By: #### 2 91564 ####[facility],[address] [place] [address] 54625 Erythrocyte distribution width (RBC) [Ratio] 12.6 % Normal 12.0 - 15.6 [facility] Comment on above: Performed By: #### 2 73159 ####[facility],[address] [place] [address] 28166 Hematocrit (Bld) [Volume fraction] 45.7 % Normal 40.0 - 52.0 [facility] Comment on above: Performed By: #### 2 65385 ####[facility],[address] [place] [address] 30185 Hemoglobin (Bld) [Mass/Vol] 15.9 g/dL Normal 13.0 - 17.5 [facility] Comment on above: Performed By: #### 2 35603 ####[facility],[address] [place] [address] 33554 Lymph # 0.71 x10EE3/UL Low 0.80 - 2.80 [facility] Comment on above: Performed By: #### 2 23698 ####[facility],[address] [place] [address] 22627 Lymphocytes/100 WBC (Bld) 4.0 % Low 20.0 - 45. 0 [facility] Comment on above: Performed By: #### 2 59464 ####[facility],[address] [place] [address] 87953 Lymphocytes/100 WBC (Bld) 5 % Low 20 - 45 [facility] Comment on above: Performed By: #### 2 60173 ####[facility],[address] [place] [address] 35726 MANUAL DIFF SEE BELOW Normal [facility] Comment on above: Performed By: #### 2 08508 ####[facility],[address] [place] [address] 51837 MCH (RBC) [Entitic mass] 33 pg Normal 27 - 33 [facility] Comment on above: Performed By: #### 2 97147 ####[facility],[address] [place] [address] MCHC 35 X10 3 Normal 32 - 36 [facility] Comment on above: Performed By: #### 2 32485 ####[facility],[address] [place] [address] 27640 MCV (RBC) [Entitic vol] 95 fL Normal 81 - 98 [facility] Comment on above: Performed By: #### 2 38519 ####[facility],[address] [place] [address] 07310 [place] # 1.02 x10EE3/UL High 0.20 - 1.00 [facility] Comment on above: Performed By: #### 2 70027 ####[facility],[address] [place] [address] 62868 MONOS 3 % Normal 0 - 10 [facility] Comment on above: Performed By: #### 2 67102 ####[facility],[address] [place] [address] 51929 MONOS % 5.7 % Normal 0.0 - 10.0 [facility] Comment on above: Performed By: #### 2 03555 ####[facility],[address] [place] [address] 87341 Morphology Olivier (Bld) [Interp] REVIEWED Normal [facility] Comment on above: Performed By: #### 2 10006 ####[facility],[address] [place] [address] 55558 Neut # 15.96 x10EE3/UL High 1.50 - 7.10 [facility] Comment on above: Performed By: #### 2 32231 ####[facility],[address] [place] [address] 04078 Neutrophils/100 WBC (Bld) 89.8 % High 46.0 - 76. 0 [facility] Comment on above: Performed By: #### 2 03878 ####[facility],[address] [place] [address] 10412 PLATELET 232 x10EE3/UL Normal 150 - 450 [facility] Comment on above: Performed By: #### 2 01370 ####[facility],[address] [place] [address] 30294 Platelet mean volume (Bld) [Entitic vol] 7.9 fL Normal 6.4 - 10.5 [facility] Comment on above: Result Comment: AUTO MATED DIFFERENTIAL Performed By: #### 2 29048 ####[facility],[address] [place] [address] 26519 RBC 4.80 x 10EE6/UL Normal 4.50 - 6.00 [facility] Comment on above: Performed By: #### 2 72301 ####[facility],[address] [place] [address] 00768 SEGS 90 % High 46 - 76 [facility] Comment on above: Performed By: #### 2 80567 ####[facility],[address] [place] [address] 03618 WBC 17.8 x 10EE3/UL High 4.5 - 10.8 [facility] Comment on above: Performed By: #### 2 48934 ####[facility],[address] [place] [address] 34991 CHEST 1 VIEWon 01-16-2025 CHEST 1 VIEW [place] [id number] Patient: GABRIELA PAPPAS Phone#: : [phone] Age: 54 Gender: M Pt. Type: ER Account: [id number] Location: [id number] Ordering: DR. ELADIO MCDONNELL Exam Date: 01/16/2025/10:25 Family Phys: Charge Code: [id number] Physician: [place] Order #: [id number] Dose#: PROCEDURE: X-RAY CHEST 1 VIEW COMPARISON: None. INDICATIONS: Fever. FINDINGS: LUNGS: Hazy right infrahilar infiltrate. VASCULATURE: Normal. Unremarkable pulmonary vasculature. CARDIAC: Normal. No cardiac silhouette abnormality or cardiomegaly. MEDIASTINUM: Normal. No visible mass or adenopathy. PLEURA: Normal. No effusion or pleural thickening. BONES: Normal. No fracture or visible bony lesion. OTHER: Negative. CONCLUSION: 1. Right infrahilar infiltrate. Dictated by: Teresa Becerra MD on 01/16/2025 at 10:52 Approved by: Teresa Becerra MD on 01/16/2025 at 11:12 Normal [facility] CMP with eGFRon 01-16-2025 AGE 54 years Normal [facility] Comment on above: Performed By: #### 2 62820 #### [facility],[address] [place] [address] 38668 Albumin [Mass/Vol] 3.8 g/dL Normal 3.4 - 5.0 [facility] Comment on above: Performed By: #### 2 94426 #### [facility],[address] [place] [address] 97570 Albumin/Globulin [Mass ratio] 0.9 {ratio} Normal 0.9 - 1.6 [facility] Comment on above: Performed By: #### 2 99474 #### [facility],[address] [place] [address] 03985 ALK PHOS 113 U/L Normal 46 - 116 [facility] Comment on above: Performed By: #### 2 63640 #### [facility],[address] [place] [address] 11600 ALT [Catalytic activity/Vol] 36 U/L Normal 16 - 63 [facility] Comment on above: Performed By: #### 2 49524 #### [facility],[address] [place] [address] 00891 Anion gap [Moles/Vol] 15 mmol/L Normal 10 - 20 [facility] Comment on above: Performed By: #### 2 43087 #### [facility],[address] [place] [address] 19583 AST [Catalytic activity/Vol] 14 U/L Low 15 - 37 [facility] Comment on above: Performed By: #### 2 39912 #### [facility],[address] [place] [address] 70856 B/C RATIO 10 ratio Normal 0 - 30 [facility] Comment on above: Performed By: #### 2 26773 #### [facility],[address] [place] [address] 45515 Bilirubin [Mass/Vol] 1.7 mg/dL High 0.2 - 1.0 [facility] Comment on above: Performed By: #### 2 91964 #### [facility],[address] [place] [address] 41890 Calcium [Mass/Vol] 9.2 mg/dL Normal 8.5 - 10.1 [facility] Comment on above: Performed By: #### 2 83514 #### [facility],[address] [place] [address] 10434 Chloride [Moles/Vol] 98 mmol/L Normal 98 - 107 [facility] Comment on above: Performed By: #### 2 68123 #### [facility],[address] [place] [address] 28124 CMP with eGFR Normal [facility] Comment on above: Result Comment: COMP REHENSIVE METABOLIC PANEL Performed By: #### 2 94313 #### [facility],[address] [place] [address] 78335 CO2 [Moles/Vol] 27.9 mmol/L Normal 21.0 - 32.0 [facility] Comment on above: Performed By: #### 2 99335 #### [facility],[address] [place] [address] 53980 Creatinine [Mass/Vol] 1.27 mg/dL Normal 0.70 - 1.30 [facility] Comment on above: Performed By: #### 2 45631 #### [facility],[address] [place] [address] 46215 eGFR 59 ML/MINUTE Low 60 - 999 [facility] Comment on above: Performed By: #### 2 63134 #### [facility],[address] [place] [address] 59253 GFR/1.73 sq M.predicted among non-blacks MDRD (S/P/Bld) [Vol rate/Area] mL/min/{1.73_m2} Normal 60 - 999 [facility] Comment on above: Result Comment: ACCO RDING TO THE NATIONAL KIDNEY DISEASE EDUCATION PROGRAM(NKDE), A NORMAL eGFR IS A VALUE GREATER THAN OR EQUAL TO 60 ML/MIN/1.73 SQ METERS. CHRONIC KIDNEY DISEASE: <60mL/MIN/1.73 SQ METERS KIDNEY FAILURE: <15mL/MIN/1.73 SQ METERS THIS TEST SHOULD ONLY BE USED FOR PATIENTS 18 YEARS OF AGE AND OLDER. Performed By: #### 2 45536 #### [facility],[address] [place] [address] 01069 Globulin (S) [Mass/Vol] 4.3 g/dL High 1.5 - 3.8 [facility] Comment on above: Performed By: #### 2 38080 #### [facility],[address] [place] [address] 84116 Glucose [Mass/Vol] 102 mg/dL Normal 74 - 106 [facility] Comment on above: Performed By: #### 2 66996 #### [facility],[address] [place] [address] 30715 Potassium [Moles/Vol] 4.2 mmol/L Normal 3.5 - 5.1 [facility] Comment on above: Performed By: #### 2 79940 #### [facility],[address] [place] [address] 59362 Protein [Mass/Vol] 8.1 g/dL Normal 6.4 - 8.2 [facility] Comment on above: Performed By: #### 2 04890 #### [facility],[address] [place] [address] 51285 Sodium [Moles/Vol] 137 mmol/L Normal 136 - 145 [facility] Comment on above: Performed By: #### 2 37920 #### [facility],[address] [place] [address] 24915 Urea nitrogen [Mass/Vol] 13 mg/dL Normal 7 - 18 [facility] Comment on above: Performed By: #### 2 67197 #### [facility],[address] [place] [address] 02857 CORONAVIRUS (SARS) ANTIGEN T ESTon 01-16-2025 EXTERNAL QC DONE? YES Normal [facility] Comment on above: Performed By: #### 2 20749 #### [facility],[address] [place] [address] 65423 INTERNAL CONTROL PASS Normal [facility] Comment on above: Performed By: #### 2 67326 #### [facility],[address] [place] [address] 68029 SARS ANTIGEN Negative Normal NORMAL: NEGATIVE [facility] Comment on above: Performed By: #### 2 18920 #### [facility],[address] [place] [address] 17144 SEND TO ? NO Normal [facility] Comment on above: Result Comment: SARS -CoV-2 THIS TEST IS BEING USED UNDER THE FDA EUA PROCEDURE. THIS ASSAY HAS BEEN VALIDATED AT [facility] FOR USE WITH NASAL AND NASOPHARYNGEAL SWAB SPECIMENS. INTERPRETIVE DATA TEST RESULTS SHOULD ALWAYS BE CONSIDERED IN THE CONTEXT OF CLINICAL OBSERVATIONS AND EPIDEMIOLOGICAL DATA IN MAKING FINAL DIAGNOSIS AND PATIENT MANAGEMENT DECISIONS. PATIENT MANAGEMENT SHOULD FOLLOW CURRENT CDC GUIDELINES. THE WING SARS ANTIGEN BERNARDO DOES NOT DIFFERENTIATE BETWEEN SARS-CoV & SARS-CoV-2. A POSITIVE TEST RESULT INDICATES THE PRESENCE OF SARS-CoV-2 NUCLEOCAPSID PROTEIN ANTIGEN, AND THE PATIENT IS INFECTED WITH THE VIRUS AND PRESUMED TO BE CONTAGIOUS. A NEGATIVE TEST RESULT FOR THIS TEST MEANS THAT SARS-CoV-2 NUCLEOCAPSID PROTEIN ANTIGEN WAS NOT PRESENT IN THE SPECIMEN ABOVE THE LIMIT OF DETECTION. HOWEVER, A NEGATIVE RESULT DOES NOT RULE OUT COVID-19 AND SHOULD NOT BE USED THE SOLE BASIS FOR TREATMENT OR PATIENT MANAGEMENT DECISIONS. A NEGATIVE RESULT DOES NOT EXCLUDE THE POSSIBILITY OF COVID-19. NEGATIVE RESULTS, FROM PATIENTS WITH SYMPTOM ONSET BEYOND FIVE DAYS, SHOULD BE TREATED PRESUMPTIVE AND CONFIRMATION WITH A MOLECULAR ASSAY, IF NECESSARY, FOR PATIENT MANAGEMENT, MAY BE PERFORMED. WHEN DIAGNOSTIC TESTING IS NEGATIVE, THE POSSIBLILTY OF A FALSE NEGATIVE RESULT SHOULD BE CONSIDERED IN THE CONTEXT OF A PATIENT'S RECENT EXPOSURES AND THE PRESENCE OF CLINICAL SIGNS AND SYMPTOMS CONSISTENT WITH COVID-19. THE POSSIBILITY OF A FALSE NEGATIVE RESULT SHOULD ESPECIALLY BE CONSIDERED IF THE PATIENT'S RECENT EXPOSURES OR CLINICAL PRESENTATION INDICATE THAT COVID-19 IS LIKELY, AND DIAGNOSTIC TESTS FOR OTHER CAUSES OF ILLNESS (e.g., OTHER RESPIRATORY ILLNESS) ARE NEGATIVE. IF COVID-19 IS STILL SUSPECTED BASED ON EXPOSURE HISTORY TOGETHER WITH OTHER CLINICAL FINDINGS, RE-TESTING SHOULD BE CONSIDERED BY HEALTHCARE PROVIDERS IN CONSULTATION WITH PUBLIC HEALTH AUTHORITIES. Performed By: #### 2 [id number] #### [facility],[address] [place] [id number] CULTURE BLOOD [ANURADHA]on Microscopic examination of blood, culture CULTURE BLOOD [ANURADHA] _BLOOD CULTURE_ [facility] AND ATTACHMENTS FOR SCANNED REPORT 01/22/25.0724.DNP.C OMPLETE Normal [facility] Comment on above: Performed By: #### 2 [id number] #### [facility],[address] [place], [place] [id number] ED MED ADMINISTRATION DETAIL on 01-16-2025 ED MED ADMINISTRATION DETAIL Telephone Maintainer Medication Administration Record [address] [address] [id number] 01/16/2025 Patient: GABRIELA PAPPAS Sex: Male : 1970 Age: 54y MEASUREMENTS: Wt: 74.8 kg, Ht/Александр: 69.0 in, BMI: 24.37 ALLERGIES: No known drug allergies Medication Ordered Medication Administration Date/Time CefTRIAXone 11:01/16 CefTRIAXone (Rocephin) IVPB 2gm/50ml NS 2 g Started (Rocephin) IVPB started at 100 mL/hr diluted in sodium chloride IVPB 0.9 % 11:01/16/2025 2gm/50ml NS 2 g Minibag+ 50 mL over 1 hour(s) via Site# 1. Confirmed 5 rights. Via Minh Vargas R.N. diluted in sodium IV pump. IV site checked: no pain, redness, or swelling.IV flushed Stopped chloride IVPB 0.9 % thoroughly pre-medication administration. - 11:28 Minh Vargas, 12:01/16/2025 Minibag+ 50 mL at R.N. Keren Hernandez.N. 100 mL/hr (NOW x1) Scanned 12:01/16 Medication Discontinued: IV infused. Total amount infused: 1000 mL. - 12:24 Minh Vargas R.N. IV NS 0.9 % 1000 11:01/16 IV NS 0.9 % 1000 mL started in bag#1 1000 mL at Started mL at 999 mL/hr 999 mL/hr over 1 hour(s) via Site# 1. - 11:31 Minh Vargas R.N. 11:01/16/2025 (NOW x1) Minh Vargas R.NSam 12:01/16 Medication Discontinued: bag #1 infused. Total Stopped amount infused: 1000 mL. - 12: Minh Vargas R.N. 12:23 01/16/2025 Minh Vargas R.N. Scanned 1 of 1 [facility] ED NURSES CLINICAL NOTEon ED NURSES CLINICAL NOTE Nurse Narrative Nurse Clinical Narrative [facility] [address] [place] [address] [phone] 01/16/2025 Patient: GABRIELA PAPPAS Sex: Male : 1970 Age: 54y Primary Insurance: [facility] Policy Number: [id number] Subscriber: Other Disposition: Discharge to Home Disposition Decision Time: 13:59 01/16/2025 Departure Time: 15:10 01/16/2025 TRIAGE Arrived by private vehicle. Historian: (patient). Accompanied by spouse. Primary physician (Dr. Orellana). Triage time: 09:12 01/16/2025. Acuity: LEVEL 3. Chief Complaint: FEVER, CHILLS, HEADACHE, DIZZINESS and FAINTING (SOB). ( Ongoing for the past 3 days.). -- 09:18 01/16/25 SUZIE Walker R.N. 09:17 01/16/25. BP: 121/79 MAP: 93. HR: 98. RR: 18. O2 saturation: 94% Temperature: 98.4 F. Pain level now 0/10. -- 09:18 01/16/25 SUZIE Walker R.N. 09:20 01/16/25. SEPSIS SCREEN: NEGATIVE. SIRS criteria negative. No possible sources of infection. -- 09:20 01/16/25 SUZIE Walker R.N. Measurements: 09:16 01/16/25 Wt: 74.8 kg, Ht/Александр: 69.0 in, BMI: 24.37 -- 09:16 01/16/25 SUZIE Walker R.N. Medications: no known home medications -- 09:15 01/16/25 SUZIE Walker R.N. 1 of 4 Nurse Narrative Allergies: no known drug allergies -- 09:14 01/16/25 SUZIE Walker R.N. Problems: no known problem -- 09:14 01/16/25 SUZIE Walker R.N. ADDITIONAL SURGERIES: ear drum repair -- 09:15 01/16/25 SUZIE Walker R.N. History 09:12 01/16/25. SOCIAL HX: Never smoker. Alcohol use; consumes beer occasionally. No drug use. Recent travel. Infectious disease exposure: No infectious disease exposure. ABUSE ASSESSMENT: The patient answered yes to the question(s) Do you feel safe in your home? and no to the question(s) Are you afraid to go home?. SELF HARM ASSESSMENT: Self harm assessment was performed. The patient answered no to the question(s) Have you recently felt down, depressed, or hopeless? and Do you have thoughts of harming or killing yourself?. FALL RISK ASSESSMENT: Fall risk assessment completed. No risk factors identified. -- 09:18 01/16/25 SUZIE Walker R.N. Interventions 09:12 01/16/25. Precautions initiated. To treatment room. Advanced care plan discussed with patient. -- 09:18 01/16/25 SUZIE Walker R.N. PHYSICAL ASSESSMENT 09:32 01/16/25. GENERAL / NEURO / PSYCH: Alert. Oriented X 4. Appears in no acute distress. ( Dizziness). HEENT: Pupils equal, round and reactive to light. No facial asymmetry noted. Mucous membranes are pink. 2 of 4 Nurse Narrative RESPIRATORY: Respirations not labored. The patient can speak in full sentences. Crackles in the right lung base posteriorly. CVS: Normal sinus rhythm noted. Capillary refill less than 2 seconds. GI / : Abdomen soft and nontender. SKIN: Skin is warm and dry. -- 09:32 01/16/25 SUZIE Hsieh R.N. NURSING PROGRESS NOTES 10:01/16/25. Site #1 started via IV in the right antecubital space with an 18g angiocath; 1 attempt. Blood drawn: rainbow set and morales tube(s) and cultures x 1. Sent to the lab. Saline lock flushed with 5 mL saline. (UA obtained.) -- 10:17 01/16/25 SUZIE Hsieh R.N. 10:16 01/16/25. 12-LEAD EKG: EKG time: (10:01/16/2025). 12-Lead EKG was performed by me and shown to the ED physician. -- 10:16 01/16/25 SUZIE Walker R.N. 10:18 01/16/25. Portable CXR performed. -- 10:19 01/16/25 SUZIE Hsieh R.N. 11:28 01/16/25. CefTRIAXone (Rocephin) IVPB 2gm/50ml NS 2 g started at 100 mL/hr diluted in sodium chloride IVPB 0.9 % Minibag+ 50 mL over 1 hour(s) via Site# 1. Confirmed 5 rights. Via IV pump. IV site checked: no pain, redness, or swelling.IV flushed thoroughly pre-medication administration. -- 11:28 01/16/25 SUZIE Vargas R.N. 11:29 01/16/25. IV NS 0.9 % 1000 mL started in bag#1 1000 mL at 999 mL/hr over 1 hour(s) via Site# 1. -- 11:31 01/16/25 SUZIE Vargas R.N. 12:01/16/25. IV NS 0.9 %: Medication Discontinued. bag #1 infused. Total amount infused: 1000 mL. -- 12:23 01/16/25 SUZIE Vargas R.N. 12:01/16/25. CefTRIAXone (Rocephin) IVPB 2gm/50ml NS: Medication Discontinued. IV infused. Total amount infused: 1000 mL. -- 12:24 01/16/25 SUZIE Vargas R.N. DISPOSITION / DISCHARGE 12:57 01/16/25. BP: 141/81 MAP: 101 mmHg. HR: 102 bpm. -- 15:02 01/16/25 SUZIE Vargas R.N. 13:01/16/25. BP: 148/85 MAP: 107 mmHg. HR: 101 bpm. -- 15:02 01/16/25 SUZIE Vargas R.N. 13:12 01/16/25. HR: 105 bpm. O2 saturation: 95%. -- 15:02 01/16/25 SUZIE Vargas R.N. 13:01/16/25. BP: 125/69 MAP: 87 mmHg. HR: 96 bpm. -- 15:02 01/16/25 EST Minh Vargas R.N. 13:27 01/16/25. HR: 97 bpm. O2 saturation: 94%. -- 15:02 01/16/25 EST Minh Vargas R.N. 13:41 01/16/25. BP: 137/78 MAP: 97 mmHg. HR: 98 (more content not included)... [facility] ED ORDER SHEET (CPOE ONLY)on 01-16-2025 ED ORDER SHEET (CPOE ONLY) Order Sheet Order Sheet [address] [address] [id number] 01/16/2025 Patient: GABRIELA PAPPAS Sex: Male : 1970 Age: 54y MEASUREMENTS: Wt: 74.8 kg, Ht/Александр: 69.0 in, BMI: 24.37 ALLERGIES: No known drug allergies MEDICATION/IV/DRIP/ FLUID ORDERS Order Description Priority Entered Acknowledged Completed CefTRIAXone (Rocephin) IVPB 11:11 01/16/2025 11:27 11:28 2gm/50ml NS2 g diluted in Eladio Mcdonnell M.D. 01/16/2025 01/16/2025 sodium chloride IVPB 0.9 % Minh Hernandez Minibag+ 50 mL at 100 mL/hr R.N. R.N. (NOW x1) IV NS 0.9 %1000 mL at 999 11:11 01/16/2025 11:27 11:31 mL/hr (NOW x1) Eladio Mcdonnell M.D. 01/16/2025 01/16/2025 Minh Hernandez R.N. R.N. LAB ORDERS Order Description Priority Entered Acknowledged Collected Completed CBC w Diff Stat Stat 09:52 01/16/2025 10:18 01/16/2025 10:18 01/16/2025 Edilberto Velez R.N. Nathan Hall, R.N. M.D. CMP Stat Stat 09:52 01/16/2025 10:18 01/16/2025 10:18 01/16/2025 Edilberto Velez R.N. Nathan Hall RSamNSam 1 of 3 Order Sheet M.D. Blood Culture Stat 09:52 01/16/2025 10:18 01/16/2025 10:18 01/16/2025 [Anuradha] # 1 Stat Edilberto Velez R.N. Nathan Hall, R.N. M.D. Lactate, Serum Stat Stat 09:52 01/16/2025 10:18 01/16/2025 10:18 01/16/2025 Edilberto Velez R.N. Nathan Hall, R.N. M.D. EKG - ED Stat Stat 09:52 01/16/2025 10:18 01/16/2025 10:18 01/16/2025 Edilberto Velez R.N. Nathan Hall, R.N. M.D. Urinalysis Stat Stat 09:52 01/16/2025 10:18 01/16/2025 10:18 01/16/2025 Edilberto Velez R.N. Nathan Hall, R.N. M.D. Flu Swab (Influenzae Stat 09:52 01/16/2025 10:18 01/16/2025 10:18 01/16/2025 AAg) Stat Edilberto Velez R.N. Nathan Hall, R.N. M.D. Rapid COVID (SARS) Stat 09:52 01/16/2025 10:18 01/16/2025 10:18 01/16/2025 ANTIGEN TEST Stat Edilberto Velez R.N. Nathan Hall, R.N. M.D. Urine Culture [CCL] Stat Stat 11:11 01/16/2025 11:27 01/16/2025 11:27 01/16/2025 Minh Velez Samuel Burgett, M.D. R.N. RRodriguez 2 of 3 Order Sheet DIAGNOSTIC STUDY ORDERS Order Description Priority Entered Acknowledged Completed Chest 1V Stat Stat 09:52 01/16/2025 10:18 10:18 Eladio Mcdonnell M.D. 01/16/2025 01/16/2025 Edilberto Washington R.N. RRodriguez Reason for Study: Fever STAFF ORDERS Order Description Priority Entered Acknowledged Collected Completed IV Saline Lock 09:52 01/16/2025 10:18 01/16/2025 10:18 01/16/2025 Edilberto Velez R.N. Nathan Hall, R.N. M.D. [Electronically signed by Eladio Mcdonnell M.D. (01/16/2025 13:58 EST)] 3 of 3 [facility] ED PHYSICIAN CLINICAL REPORT on 01-16-2025 ED PHYSICIAN CLINICAL REPORT Narrative Physician Clinical Narrative [facility] [address] [place] [address]. [place] [address] [phone] 01/16/2025 Patient: GABRIELA PAPPAS Sex: Male : 1970 Age: 54y Primary Insurance: [facility] Policy Number: [id number] Subscriber: Other Measurements Wt: 74.8 kg, Ht/Александр: 69.0 in, BMI: 24.37 Initial Vital Sign Measured Time BP MAP HR RR O2Sat ETCO2 Temp Pain GCS RTS 09:17 01/16/2025 121/79 93 98 18 94% 98.4 F 0 Time Seen: 09:43 01/16/2025. Arrived- By private vehicle. Historian- patient. HISTORY OF PRESENT ILLNESS Chief Complaint: DYSURIA and URINARY FREQUENCY. This started yesterday and is still present. (patient presents with a 2 day history of fever, dysuria, malaise, weakness, a little shortness of breath and overall not feeling well. This has been going on for 2 days. He is also having urinary frequency and some dysuria. Also some low back pain. He apparently was in [place] working and this began developing on his drive back. Continues to have symptoms so presents here. No penile discharge. He has never had anything like this before. No history of prostate infections. Denies any chest pain). REVIEW OF SYSTEMS NEUROLOGICAL: No headache. GI: The patient has had flank pain. No abdominal pain, vomiting or diarrhea. CONSTITUTIONAL: The patient has had fever and chills. THROAT: No sore throat. EYES: No blurred vision. CVS: No chest pain. RESPIRATORY: No cough. : No hematuria. 1 of 7 Narrative PAST HISTORY See nurses notes. no known problem Surgeries: ear drum repair Medications: no known home medications Allergies: no known drug allergies SOCIAL HISTORY Never smoker. ADDITIONAL NOTES The nursing notes have been reviewed. PHYSICAL EXAM Vital Signs: Have been reviewed. Appearance: Alert. No acute distress. ENT: Normal external inspection. Neck: Neck supple. CVS: Heart sounds normal. Respiratory: No respiratory distress. Painless inspiration. Breath sounds normal. Abdomen: Soft and nontender. No mass. Back: Normal external inspection. Skin: Skin warm. Normal skin color. No rash. Extremities: Extremities exhibit normal ROM. Neuro: Oriented X 3. No motor deficit. No sensory deficit. Reflexes normal. 2 of 7 Narrative LABS, X-RAYS, AND EKG 12-LEAD EKG: No acute process. Normal sinus rhythm. Rate: 97. The EKG appears to be a good tracing. Laboratory Tests: CBC + DIFF Final STAR: 01/16/2025 10:00:00 EST MsgRcvd: 01/16/2025 10:55 EST Lab Test Result Reference Status Received Comments 01/16/2025 10:55 CBC-COMPLETE CBC + DIFF Final EST BLOOD COUNT 17.8 x 10/UL 01/16/2025 10:55 WBC 4.5 - 10.8 Final Above high normal EST 01/16/2025 10:55 RBC 4.80 x 10/UL 4.50 - 6.00 Final EST 01/16/2025 10:55 HEMOGLOBIN 15.9 g/dl 13.0 - 17.5 Final EST 01/16/2025 10:55 HEMATOCRIT 45.7 % 40.0 - 52.0 Final EST 01/16/2025 10:55 MCV 95 fl 81 - 98 Final EST 01/16/2025 10:55 MCH 33 pg 27 - 33 Final EST 01/16/2025 10:55 MCHC 35 X10 3 32 - 36 Final EST 01/16/2025 10:55 RDW/CV 12.6 % 12.0 - 15.6 Final EST 3 of 7 Narrative Lab Test Result Reference Status Received Comments 01/16/2025 10:55 PLATELET 232 x10/UL 150 - 450 Final EST 01/16/2025 10:55 AUTOMATED MPV 7.9 fl 6.4 - 10.5 Final EST DIFFERENTIAL 89.8 % 01/16/2025 10:55 NEUT % 46.0 - 76.0 Final Above high normal EST 4.0 % 01/16/2025 10:55 LYMPH % 20.0 - 45.0 Final Below low normal EST 01/16/2025 10:55 MONOS % 5.7 % 0.0 - 10.0 Final EST 01/16/2025 10:55 EO % 0.4 % 0.0 - 7.0 Final EST 01/16/2025 10:55 BASO % 0.1 % 0.0 - 2.0 Final EST 0.71 x10/UL 01/16/2025 10:55 Lymph # 0.80 - 2.80 Final Below low normal EST 15.96 x10/UL 01/16/2025 10:55 Neut # 1.50 - 7.10 Final Above high normal EST 1.02 x10/UL 01/16/2025 10:55 [place] # 0.20 - 1.00 Final Above high normal EST 01/16/2025 10:55 EO # 0.07 x10/UL 0.00 - 0.50 Final EST 01/16/2025 10:55 Baso # 0.01 x10/UL 0.00 - 0.10 Final EST 01/16/2025 10:55 MANUAL DIFF SEE BELOW Final EST 4 of 7 Narrative Lab Test Result Reference Status Received Comments 01/16/2025 10:55 BANDS 2% 0-5 Final EST 90 % 01/16/2025 10:55 SEGS 46 - 76 Final Above high normal EST 5% 01/16/2025 10:55 LYMPH 20 - 45 Final Below low normal EST 01/16/2025 10:55 MONOS 3% 0 - 10 Final EST 01/16/2025 10:55 CELL COUNT 100 Final EST 01/16/2025 10:55 MORPHOLOGY REVIEWED Final EST Diagnostic Study Tests: CHEST 1 VIEW Final EXAM Date: 01/16/2025 11:12:00 EST MsgRcvd: 01/16/2025 11:16 EST [place] [id number] Patient: GABRIELA PAPPAS Phone#: : 09/22 (more content not included)... [facility] ED SUPER BILLon 01-16-2025 ED [facility]PER BILL [facility] [address] [address] [id number] 01/16/2025 Patient: GABRIELA PAPPAS Sex: Male : 1970 Age: 54y Item Facility Professional Category Description Code Code Quantity Fee Total Nurse/E/M EMERGENCY 791771 1 $0.00 $0.00 DEPARTMENT VISIT HIGH/URGENT SEVERITY (76539-18) Nurse/IV/IM/Infusio ns Drip/IVPB initial [id number] 1 $0.00 $0.00 (97932) Grand Total $0.00 Providers Eladio Mcdonnell M.D. Chief Complaint DYSURIA and URINARY FREQUENCY. Principal Diagnosis 1 of 2 [facility] D[facility]. Urinary tract infection. perihilar infiltrate. ICD-10 Codes N39.0: Urinary tract infection, site not specified R30.0: Dysuria 2 of 2 [facility] ED VISIT SUMMARYon ED VISIT SUMMARY Visit Overview Visit Overview [address] [address] [id number] 01/16/2025 Patient: GABRIELA PAPPAS Sex: Male : 1970 Age: 54y 01/16/2025 03:27 PM EST ED Arrival:09:10 01/16/2025 EST Status: Recent Travel:yes Language:eng Adv Directive: Isolation Status: Ethnicity:N Fall Risk:no risk Infectious Disease Exposure:no Measurements:5'9 / 175.3 Self-Harm Status:risk Sepsis Screen:negative cm 165.0 lb / 74.8 kg Chief Complaint:CHILLS, DIZZINESS, FAINTING, FEVER, HEADACHE, (Dr. Orellana ), (Ongoing for the past 3 days. ), and (SOB ) ALLERGIES No Known Drug Allergies HOME MEDICATIONS None PAST MEDICAL HISTORY / PROBLEMS 1 of 3 Visit Overview None Recent travel See nurses notes PAST SURGICAL HISTORY ear drum repair SOCIAL HISTORY Smoking status: No Alcohol use: Yes Drug use: No ED COURSE MEDICATIONS GIVEN IN EMERGENCY DEPARTMENT CefTRIAXone (Rocephin) IVPB 2gm/50ml NS 2 g diluted in sodium chloride IVPB 0.9 11:28 01/16/25 % Minibag+ 50 mL 100 mL/hr over 1 hour(s) 11:29 01/16/25 IV NS 0.9 % 1000 mL 999 mL/hr over 1 hour(s) IV SITE INFORMATION INTAKE OUTPUT REASSESMENT (most recent) 09:32 01/16/25. GENERAL / NEURO / PSYCH: Alert. Oriented X 4. Appears in no acute distress. ( Dizziness). HEENT: Pupils equal, round and reactive to light. No facial asymmetry noted. Mucous membranes are pink. RESPIRATORY: Respirations not labored. The patient can speak in full sentences. Crackles in the right lung base posteriorly. CVS: Normal sinus rhythm noted. Capillary refill less than 2 seconds. GI / : Abdomen soft and nontender. SKIN: Skin is warm and dry. VITAL SIGNS First Vitals Last Vitals Temp 09:17 01/16/25 98.4 F Temp 14:57 01/16/25 BP 09:17 01/16/25 121/79 BP 14:57 01/16/25 2 of 3 Visit Overview First Vitals Last Vitals HR 09:17 01/16/25 98 HR 14:57 01/16/25 114 RR 09:17 01/16/25 18 RR 14:57 01/16/25 O2 Sat 09:17 01/16/25 94% O2 Sat 14:57 01/16/25 94% Pain 09:17 01/16/25 0 Pain 14:57 01/16/25 ETCO2 09:17 01/16/25 ETCO2 14:57 01/16/25 GCS 09:17 01/16/25 GCS 14:57 01/16/25 RTS 09:17 01/16/25 RTS 14:57 01/16/25 PROCEDURES NURSING INTERVENTIONS LABS / STUDIES LABS / STUDIES ORDERED Blood Culture [Anuradha] # 1 CBC w Diff Chest 1V CMP EKG - ED Flu Swab (Influenzae AAg) Lactate, Serum Rapid COVID (SARS) ANTIGEN TEST Urinalysis Urine Culture [CCL] LABS / STUDIES PENDING IMPORT CMP with eGFR CORONAVIRUS (SARS) ANTIGEN TEST INFLUENZA VIRUS RAPID A/B LACTATE URINALYSIS CLINICAL IMPRESSION DYSURIA URINARY TRACT INFECTION 3 of 3 [facility] ED VITALS FLOW SHEETon 01-16 ED VITALS FLOW SHEET Vitals Vital Sign Flow Sheet [place] [address] [place] [address] [phone] 01/16/2025 Patient: GABRIELA PAPPAS Sex: Male : 1970 Age: 54y Measurements Wt: 74.8 kg, Ht/Александр: 69.0 in, BMI: 24.37 Measured Time BP MAP HR RR O2Sat ETCO2 Temp Pain GCS RTS 14:57 01/16/2025 114 94% 14:56 01/16/2025 120/66 84 100 14:52 01/16/2025 102 95% 14:47 01/16/2025 106 95% 14:42 01/16/2025 108 95% 14:41 01/16/2025 128/75 89 100 14:37 01/16/2025 95 94% 14:32 01/16/2025 100 95% 14:27 01/16/2025 100 95% 14:26 01/16/2025 129/73 91 98 14:22 01/16/2025 101 95% 14:17 01/16/2025 110 94% 14:12 01/16/2025 96 95% 14:11 01/16/2025 130/76 87 97 14:07 01/16/2025 95 95% 1 of 4 Vitals Measured Time BP MAP HR RR O2Sat ETCO2 Temp Pain GCS RTS 14:02 01/16/2025 102 95% 13:57 01/16/2025 104 95% 13:56 01/16/2025 128/78 91 100 13:52 01/16/2025 106 95% 13:47 01/16/2025 100 95% 13:42 01/16/2025 103 95% 13:41 01/16/2025 137/78 97 98 13:37 01/16/2025 105 95% 13:32 01/16/2025 103 95% 13:27 01/16/2025 97 94% 13:27 01/16/2025 125/69 87 96 13:22 01/16/2025 101 95% 13:17 01/16/2025 105 96% 13:12 01/16/2025 105 95% 13:12 01/16/2025 148/85 107 101 13:07 01/16/2025 95 95% 13:02 01/16/2025 100 94% 12:57 01/16/2025 108 95% 12:57 01/16/2025 141/81 101 102 12:52 01/16/2025 93 94% 12:47 01/16/2025 94 94% 12:42 01/16/2025 94 95% 12:42 01/16/2025 156/81 106 93 12:37 01/16/2025 96 94% 12:32 01/16/2025 101 95% 2 of 4 Vitals Measured Time BP MAP HR RR O2Sat ETCO2 Temp Pain GCS RTS 12:28 01/16/2025 140/75 96 99 12:27 01/16/2025 97 94% 12:22 01/16/2025 93 95% 12:17 01/16/2025 94 96% 12:12 01/16/2025 92 96% 12:12 01/16/2025 141/80 102 91 12:07 01/16/2025 94 96% 12:02 01/16/2025 91 96% 11:57 01/16/2025 95 98% 11:57 01/16/2025 153/82 97 93 11:52 01/16/2025 96 97% 11:47 01/16/2025 99 97% 11:42 01/16/2025 101 97% 11:42 01/16/2025 137/80 90 90 11:37 01/16/2025 93 97% 11:32 01/16/2025 102 95% 11:27 01/16/2025 96 95% 11:27 01/16/2025 145/84 100 96 11:22 01/16/2025 96 95% 11:17 01/16/2025 99 94% 11:12 01/16/2025 102 95% 11:12 01/16/2025 130/81 98 100 11:07 01/16/2025 97 95% 11:02 01/16/2025 98 95% 10:57 01/16/2025 95 95% 3 of 4 Vitals Measured Time BP MAP HR RR O2Sat ETCO2 Temp Pain GCS RTS 10:57 01/16/2025 133/79 95 96 10:52 01/16/2025 95 95% 10:47 01/16/2025 97 94% 10:42 01/16/2025 96 95% 10:42 01/16/2025 138/81 94 94 10:37 01/16/2025 96 95% 10:32 01/16/2025 93 95% 10:28 01/16/2025 128/73 91 89 10:27 01/16/2025 94 93% 10:22 01/16/2025 95 95% 10:17 01/16/2025 97 95% 09:17 01/16/2025 121/79 93 98 18 94% 98.4 F 0 4 of 4 [facility] INFLUENZA VIRUS RAPID A/Bon 01-16-2025 INFLUENZA VIRUS RAPID A/B INFLUENZA A NEGATIVE INFLUENZA B NEGATIVE INTERNAL NEG QC PASS INTERNAL POS QC PASS EXTERNAL QC DONE? YES SEND TO IC? NO A NEGATIVE TEST RESULT DOES NOT EXCLUDE INFECTION WITH INFLUENZA A OR B. THEREFORE, THE RESULTS OBTAINED FROM THIS FLU TEST SHOULD BE USED IN CONJUCTION WITH CLINICAL FINDINGS TO MAKE AN ACCURATE DIAGNOSIS. A POSITIVE RESULT DOES NOT RULE OUT CO-INFECTIONS WITH OTHER PATHOGENS OR IDENTIFY ANY SPECIFIC INFLUENZA A VIRUS SUBTYPE.CO-INFECTIO N WITH INFLUENZA A AND B IS RARE. IT IS RECOMMENDED THAT DUAL POSITIVE RESULTS BE CONFIRMED BY VIRAL CULTURE OR AN FDA-CLEARED INFLUENZA A AND B MOLECULAR ASSAY. INDIVIDUALS WHO HAVE RECEIVED NASALLY ADMINISTERED INFLUENZA A VACCINE MAY TEST POSITIVE IN COMMERCIALLY AVAILABLE INFLUENZA RAPID DIAGNOSTIC TESTS FOR UP TO THREE DAYS. RESULT CRITICAL? NO [facility] Comment on above: Performed By: #### 2 [id number] ####[place] [address] LACTATEon 01-16-2025 Lactate [Moles/Vol] 1.2 mmol/L Normal 0.4 - 2.0 [facility] Comment on above: Performed By: #### 2 [id number] #### [facility],[address] [place], [place] [address] URINALYSISon 01-16-2025 Amorphous NONE [facility] Comment on above: Performed By: #### 2 [id number] #### [facility],[address] [place] [id number] Bacteria 4+ Normal [facility] Comment on above: Performed By: #### 2 [id number] #### [facility],[address] [place] [id number] Bilirubin Ql (U) Negative Normal NORMAL: NEGATIVE [facility] Comment on above: Performed By: #### 2 [id number] #### [facility],[address] [place] [address] Casts NONE Normal [facility] Comment on above: Performed By: #### 2 [id number] #### [facility],[address] [place], [place] [id number] Clarity (U) very cloudy Normal NORMAL: CLEAR [facility] Comment on above: Performed By: #### 2 [id number] #### [facility],[address] [place], [place] [id number] Color (U) rick Normal NORMAL: YELLOW [facility] Comment on above: Performed By: #### 2 [id number] #### [facility],[address] [place] [address] [id number] Crystals LM Nom (Urine sed) NONE Normal [facility] Comment on above: Performed By: #### 2 [id number] #### [facility],[address] [place] [address] 58303 Epi Cells NONE Normal [facility] Comment on above: Performed By: #### 2 [id number] #### [facility],[address] [place] [address] 17905 Glucose Ql (U) NORM Normal NORMAL: NORMAL [facility] Comment on above: Performed By: #### 2 [id number] #### [facility],[address] [place] [address] 34951 Hemoglobin Ql (U) 250 Abnormal NORMAL: NEGATIVE [facility] Comment on above: Performed By: #### 2 [id number] #### [facility],[address] [place] [address] Ketone 50 Abnormal NORMAL: NEGATIVE [facility] Comment on above: Performed By: #### 2 [id number] #### [facility],[address] [place] [address] [id number] Leukocytes 500 Abnormal NORMAL: NEGATIVE [facility] Comment on above: Performed By: #### 2 [id number] #### [facility],[address] [place] [address] Mucous NONE Normal [facility] Comment on above: Performed By: #### 2 [id number] #### [facility],[address] [place], [place] [id number] Nitrite Ql (U) Positive Normal NORMAL: NEGATIVE [facility] Comment on above: Performed By: #### 2 [id number] #### [facility],[address] [place] [address] pH (U) 7 [pH] Normal NORMAL: 5.0-8.0 [facility] Comment on above: Performed By: #### 2 [id number] #### [facility],[address] [place] [address] Protein Ql (U) 100 Abnormal NORMAL: NEGATIVE [facility] Comment on above: Performed By: #### 2 [id number] #### [facility],[address] [place] [address] Rbc 5-10 Normal 0-3/hpf [facility] Comment on above: Performed By: #### 2 [id number] #### [facility],[address] [place] [address] Sp Guadalupe 1.010 Normal NORMAL: 1.010-1.030 [facility] Comment on above: Performed By: #### 2 [id number] #### [facility],[address] [place] [address] Specimen Type R Normal [facility] Comment on above: Performed By: #### 2 [id number] #### [facility],[address] [place] [address] Urinalysis dipstick W Reflex Microscopic panel (U) SEE BELOW Normal [facility] Comment on above: Result Comment: MICR OSCOPIC Performed By: #### 2 [id number] #### [facility],[address] [place] [address] Urobilinog 1 Abnormal NORMAL: NORMAL [facility] Comment on above: Performed By: #### 2 [id number] #### [facility],[address] [place] [address] WBC (U) [#/Vol] /uL Normal 0-5/hpf [facility] Comment on above: Performed By: #### 2 [id number] #### [facility],[address] [place] [address] Yeast NONE Normal [facility] Comment on above: Performed By: #### 2 [id number] #### [facility],[address] [place] [address] URINE CULTURE [CCL]on 2024 Bacteria identified Cx Nom (U) URCUL See Results Below See Below CULTURE, URINE ESCHERICHIA COLI >=100,000 CFU/ml Escherichia coli ORGANISM: ESCHERICHIA COLI ANTIBIOTIC VERA DILUTN VERA INTERP Ampicillin <=2 Susceptible Cefazolin <=4 Susceptible For uncomplicated urinary tract infections, cefazolin results can be used to pre Ceftriaxone <=1 Susceptible Cefepime <=1 Susceptible Ertapenem <=0.5 Susceptible Meropenem <=0.25 Susceptible Ampicillin/Sulbact <=2 Susceptible Piperacillin/Tazoba c <=4 Susceptible Gentamicin <=1 Susceptible Tobramycin <=1 Susceptible Trimeth sulfameth <=20 Susceptible Ciprofloxacin <=0.25 Susceptible Nitrofurantoin <=16 Susceptible This test was developed and its performance characteristics determined by the [facility] [place] ([facility]). It has not been cleared or approved by the FDA. [facility] is regulated under CLIA as qualified to perform high-complexity testing. This test is used for clinical purposes. It should not be regarded as investigational or for research. SOURCE: Urine (Nonspecific) [facility] [address] [place] [address] Iván Zapata III, M.D. [id number] Normal [facility] Comment on above: Performed By: #### 2 [id number] #### [facility],[address] [place] [address]8598 Basophil percentageOrdered B y: Tristen Perez on 08-18-2023 Bilirubin [Mass/Vol] 0.80 mg/dL 0.20-1.00 [facility] Comment on above: For patients on eltr ombopag therapy, use of Dimension Bath TBIL is not recommended. Chloride [Moles/Vol] 107 mmol/L 98-107 [facility] Cholesterol [Mass/Vol] 253 mg/dL <200 [facility] Comment on above: <200 mg/dL Desirable 200-240 mg/dL Borderline >240 mg/dL High Risk Glucose [Mass/Vol] 109 mg/dL 74-106 [facility] Comment on above: Fasting Glucose resu lt from 100 to 125 mg/dL suggests IMPAIRED HOMEOSTASIS per A.D.A. criteria. Potassium [Moles/Vol] 4.7 mmol/L 3.5-5.1 [facility] Protein [Mass/Vol] 8.3 g/dL 6.4-8.2 [facility] Sodium [Moles/Vol] 138 mmol/L 136-145 [facility] Triglyceride [Mass/Vol] 142 mg/dL <199 [facility] Comment on above: The drugs N-Acetylcy steine and Metamizole may falsely depress this assay.Serum Triglycerides Reference Interval Normal <150 mg/dL Borderline high 150 - 199 mg/dL High 200 - 499 mg/dL Very High > or = 500 mg/dL WBC (Bld) [#/Vol] 4.2 10*3/uL 4.4-11.0 [facility] Blood erythrocytes count (nu mber/volume)Ordered By: Tristen Perez on 08-18-2023 RBC (Bld) [#/Vol] 5.02 10*6/uL 4.6-6.2 [facility] Blood hemoglobin measurement (mass/volume)Ordered By: Tristen Perez on 08-18-2023 Hemoglobin (Bld) [Mass/Vol] 16.1 g/dL 13.0-16.5 [facility] Blood platelet mean volumeOr dered By: Tristen Perez on 08-18-2023 Platelet mean volume (Bld) [Entitic vol] 10.0 fL 6.2-12.0 [facility] Determination of erythrocyte mean corpuscular volume (MCV)Ordered By: Tristen Perez on 08-18-2023 MCV (RBC) [Entitic vol] 96.0 fL 80-94 [facility] Hematocrit Auto (Bld) [Volum e fraction]Ordered By: Tristen Perez on 08-18-2023 Hematocrit (Bld) [Volume fraction] 48.2 % 40-54 [facility] Laboratory - Chemistry and C hemistry - challengeOrdered By: Tristen Perez on 08-18-2023 ALP [Catalytic activity/Vol] 88 U/L 45-117 [facility] ALT [Catalytic activity/Vol] 33 U/L 16-61 [facility] CO2 [Moles/Vol] 27.0 mmol/L 21.0-32.0 [facility] Globulin (S) [Mass/Vol] 4.0 g/dL 2.2-4.2 [facility] Urea nitrogen/Creatinine [Mass ratio] 16.1 mg/mg 10-20 [facility] Laboratory - Hematology and Cell countsOrdered By: Tristen Perez on 08-18-2023 Erythrocyte distribution width (RBC) [Entitic vol] 42.4 fL 35.1-43.9 [facility] Erythrocyte distribution width (RBC) [Ratio] 12.1 % 11.6-14.6 [facility] MCH (RBC) [Entitic mass] 32.1 pg 27.0-32.0 [facility] MCHC Auto (RBC) [Mass/Vol]Or dered By: Tristen Perez on 08-18-2023 MCHC (RBC) [Mass/Vol] 33.4 g/dL 32-36 [facility] No Panel InformationOrdered By: Tristen Perez on 08-18-2023 Estimated GFR (MDRD) Amer 83 mL/min >60 [facility] Comment on above: GFR Calc Estimated GFR (MDRD) Non-Af Amer 68 mL/min >60 [facility] Comment on above: Non- GFR Calc Vitamin D 25-Hydroxy 34.5 ng/mL [facility] Comment on above: Vitamin D 25(OH) Sta tus Range Deficiency <20 ng/mL (50nmol/L) Insufficiency 20 - 30 ng/mL (50 - 75 nmol/L) Sufficiency 30 - 100 ng/mL (75 - 250 nmol/L) Toxicity >100 ng/mL (>250 nmol/L) Platelets bldOrdered By: Nicholas Perez on 08-18-2023 Platelets (Bld) [#/Vol] 272 10*3/uL 150-450 [facility] Serum or plasma albumin poornima urement (mass/volume)Ordered By: Tristen Perez on 08-18-2023 Albumin [Mass/Vol] 4.3 g/dL 3.2-5.0 [facility] Serum or plasma albumin/glob ulin mass ratioOrdered By: Tristen Perez on 08-18-2023 Albumin/Globulin [Mass ratio] 1.1 {ratio} 0.9-2.4 [facility] Serum or plasma calcium poornima urement (mass/volume)Ordered By: Tristen Perez on 08-18-2023 Calcium [Mass/Vol] 9.6 mg/dL 8.5-10.1 [facility] Serum or plasma cholesterol in HDL measurement (mass/volume)Ordered By: Tristen Perez on 08-18-2023 Cholesterol in HDL [Mass/Vol] 47 mg/dL >40 [facility] Comment on above: The drugs N-Acetylcy steine and Metamizole may falsely depress this assay. Reference Range HDL <40 mg/dL Low HDL Cholesterol HDL >or= 60 mg/dL High HDL Cholesterol Serum or plasma cholesterol in VLDL measurement (mass/volume)Ordered By: Tristen Perez on 08-18-2023 Cholesterol in VLDL [Mass/Vol] 28 mg/dL 5-40 [facility] Serum or plasma creatinine m easurement (mass/volume)Ordered By: Tristen Perez on 08-18-2023 Creatinine [Mass/Vol] 1.18 mg/dL 0.70-1.30 [facility] Comment on above: The validity of the calculated GFR & GFRAA in patients over 70 years has not been determined. Clinical correlation is essential. Serum or plasma low density lipoprotein (LDL) cholesterol measurement (mass/volume)Ordered By: Tristen Perez on 08-18-2023 Cholesterol in LDL [Mass/Vol] 178 mg/dL 0-130 [facility] Serum or plasma urea nitroge n measurement (mass/volume)Ordered By: Tristen Perez on 08-18-2023 Urea nitrogen [Mass/Vol] 19 mg/dL 7-18 [facility] Thin prep Papanicolaou smear with manual screeningOrdered By: Tristen Perez on 08-18-2023 Thin prep Papanicolaou smear with manual screening 14 U/L 15-37 [facility] Thin prep Papanicolaou smear with manual screening 4 5-15 [facility] Vital Signs Date Time Vital Sign Value Performing Clinician Faci lity 12-08-2023 09:22-0500 Body temperature 97.9 [degF] Dr. Tristen Perez Work Phone: [facility] 12-08-2023 09:22-0500 Diastolic blood pressure 74 mm[Hg] Dr. Tristen Perez Work Phone: [facility] 12-08-2023 09:22-0500 Heart rate 69 /min Dr. Tristen Perez Work Phone: [facility] 12-08-2023 09:22-0500 Respiratory rate 16 /min Dr. Tristen Perez Work Phone: [facility] 12-08-2023 09:22-0500 SaO2% (BldA) [Mass fraction] 94 % Dr. Tristen Perez Work Phone: [facility] 12-08-2023 09:22-0500 Systolic blood pressure 106 mm[Hg] Dr. Tristen Perez Work Phone: [facility] 12-08-2023 08:25-0500 Body height 175.[address] Tristen Perez Work Phone: [facility] 12-08-2023 08:25-0500 Body mass index (BMI) [Ratio] 24 kg/m2 Dr. Tristen Perez Work Phone: [facility] 12-08-2023 08:25-0500 Body weight [address] Tristen Perez Work Phone: [facility] 10-24-2023 11:05-0500 Body mass index (BMI) [Ratio] 24.3 kg/m2 Dr. Tristen Perez Work Phone: [facility] 10-24-2023 11:05-0500 Body weight 74.[address] Tristen Perez Work Phone: [facility] Encounters Encounter Date Encounter Type Care Provider Facility Start: 04-15-2025 Encounter for genera l adult medical examination without abnormal findings Tristen Perez [facility] Start: 04-11-2025 End: 04-11-[address] Tristen Perez MD Work Phone: [facility] Work Phone: Start: 04-11-2025 End: 04-11-[address] Tristen Perez MD -Laboratory [place] Work Phone: Start: 04-11-2025 End: 04-11-2025 ambulatory Tristen Perez Facility:[facility] Start: 02-05-2025 End: 02-05-[address] Tristen Perez MD Work Phone: [facility] Work Phone: Start: 02-05-2025 End: 02-05-[address] Tristen Perez MD -Laboratory, Specimen Work Phone: Start: 02-05-2025 End: 02-05-2025 ambulatory Tristen Perez Facility:[facility] Start: 01-16-2025 End: 01-16-2025 Emergency department patient visit ELADIO NOONAN [facility] Start: 12-08-2023 Non-patient / Non-visit Dr. Nirali Perez Work Phone: [facility] Start: 12-08-2023 End: 12-08-2023 Admission to same day surgery center Dr. Tristen Perez Work Phone: [facility]End[facility] Work Phone: Start: 12-08-2023 End: 12-08-[address] Tristen Perez Work Phone: [facility] Work Phone: Start: 10-24-2023 Non-patient / Non-visit Dr. Nirali Perez Work Phone: [facility] Work Phone: Start: 08-18-2023 End: 08-18-[address] Tristen Perez Work Phone: [facility]-Laboratory, [facility] Procedures Date Procedure Procedure Detail Performing Clinician Start: 04-11-2025 Prostate specific an tigen measurement Dr. Tristen Perez MD Work Phone: Comment on above: This test was perfor med using the [employer] tPSA method. Measured values of a patient sample can vary depending on the testing procedure used. PSA values determined on patient samples by different testing procedures cannot be used interchangeably. If there is a change in PSA assays while monitoring therapy, sequential testing should be performed to confirm baseline values. Start: 04-11-2025 Urnls dip stick/tabl et reagent auto microscopy Dr. Tristen Perez MD Work Phone: Start: 04-11-2025 Vitamin D, 25-hydrox y measurement Dr. Tristen Perez MD Work Phone: Comment on above: Vitamin D StatusDefi ciency: <20 ng/mL (50nmol/L)Insufficiency: 20-30 ng/mL (50-75 nmol/L)Sufficiency: 30-100 ng/mL (75-250 nmol/L)Toxicity: >100 ng/mL (>250 nmol/L) Start: 02-05-[address] Tristen Perez MD Work Phone: Start: 01-16-2025 Urinalysis ELADIO SALGADO Comment on above: Result Comment: URIN ALYSIS Performed By: #### 2 [id number] #### [facility],[address] [place] [address] Start: 12-08-[address] Tristen hough Work Phone: Plan of Treatment Date Care Activity Detail Author Start: 12-08-2023 Patient discharge [facility] Colonoscopy [facility] Patient referral [facility] Work Phone: Payers Date Payer Category Payer Self-pay [id number] 1970 Unknown [id number] Private Health Insurance [id number] Unknown ANTHEM [id number] Unknown [id number] Unknown [id number] Unknown [id number] Social History Date Type Detail Facility Start: [facility]-08-[facility]23 [facility] Start: 1970 Sex Assigned At Male [facility] Start: 12-08-2023 [facility] (finding) [facility] Start: 02-13-2025 Sex Male (finding) [facility] Goals Date Patient Goal Desired Activity /State Mental Status Date Assessment Result Facility 12-08-2023 Cognitive function Voice/Name [facility] Work Phone: Clinical Note 03-04-2025 Note Date & Type Note Facility 01-21-2025 Note . MICRO - Microbiology PROCEDURE: Blood Culture (bacterial) [*1] SOURCE: Blood BODY SITE: COLLECTED DATE/TIME: 01/16/2025 10:00 EST RECEIVED DATE/TIME: 01/16/2025 15:52 EST START DATE/TIME: 01/16/2025 15:53 EST FREE TEXT SOURCE: FINAL REPORTS Final Report [] Verified Date/Time/Personnel: 01/21/2025 15:59 EST Blood Culture: No Growth at 5 days. PRELIMINARY REPORTS Preliminary Report [] Verified Date/Time/Personnel: 01/16/2025 17:00 EST Culture has been received in lab and is no growth to date. Routine cultures are held for 5 days. Performing Locations *1: This test was performed at: [facility], [address] [place] [address], [facility] , [facility] Clinical Note 01-16-2025 Note Date & Type Note Facility 01-16-2025 Note Discharge Instructio ns Discharge Summary [address] [address] [id number] 01/16/2025 Patient: GABRIELA PAPPAS Sex: Male : 1970 Age: 54y Thank you for visiting [facility]. You have been evaluated today by Eladio Mcdonnell M.D. for the following condition(s): Principal Diagnosis Dysuria. Urinary tract infection. perihilar infiltrate. INSTRUCTIONS Take Tylenol (Acetaminophen) or Motrin (Ibuprofen) as needed for fever control. Take medication according to label instructions. No strenuous activity. Rest. Drink plenty of fluids. (medications as directed. Return if your symptoms worsen or new symptoms develop. Increase fluids. Tylenol and ibuprofen for fever and or body aches). Warnings: GENERAL WARNINGS: Return or contact your physician immediately if your condition worsens or changes unexpectedly, if not improving as expected, or if other problems arise. Prescription Medications: Augmentin 500 mg-125 mg tablet: 1 tablet by mouth three times a day for 7 days, dispense 21 tablet. Refills 0. Pharmacy: [facility] [address] [place] [address]. Follow-up: Follow up with your doctor in two days as scheduled. 1 of 10 Discharge Instructions You have been given the following additional information: Bladder Infection, Male (Adult) Pyelonephritis or Kidney Infection (Adult Male) Patient Signature Facility Chemistry Laboratory Technician Date/Time General Instructions with ExitWriter [facility] [address] [facility] [place] [place] [address] [phone] 01/16/2025 Patient: GABRIELA PAPPAS Sex: Male : 1970 Age: 54y Thank you for visiting [facility]. You have been evaluated today by Eladio Mcdonnell M.D. for the following condition(s): Principal Diagnosis Dysuria. Urinary tract infection. perihilar infiltrate. INSTRUCTIONS Take Tylenol (Acetaminophen) or Motrin (Ibuprofen) as needed for fever control. Take medication according to label instructions. No strenuous activity. Rest. Drink plenty of fluids. (medications as directed. Return if your symptoms worsen or new symptoms develop. Increase fluids. Tylenol and ibuprofen for fever and or body aches). 2 of 10 Discharge Instructions Warnings: GENERAL WARNINGS: Return or contact your physician immediately if your condition worsens or changes unexpectedly, if not improving as expected, or if other problems arise. Prescription Medications: Augmentin 500 mg-125 mg tablet: 1 tablet by mouth three times a day for 7 days, dispense 21 tablet. Refills 0. Pharmacy: [facility] [id number] [place] [address]. Follow-up: Follow up with your doctor in two days as scheduled. ADDITIONAL INFORMATION Bladder Infection, Male (Adult) You have a bladder infection. Urine is normally free of bacteria. But bacteria can get into the urinary tract from the skin around the rectum. Or it may travel in the blood from other parts of the body. This is called a urinary tract infection (UTI). An infection can occur anywhere in the urinary tract. It could be in a kidney (pyelonephritis) or in the bladder (cystitis) and urethra (urethritis). The urethra is the tube that drains urine from the bladder through the tip of the penis. The most common place for a UTI is in the bladder. This is called a bladder infection. Most bladder infections are easily treated. They are not serious unless the infection spreads up to the kidney. 3 of 10 Discharge Instructions The terms bladder infection, UTI, and cystitis are often used to describe the same thing. But they aren't always the same. Cystitis is an inflammation of the bladder. The most common cause of cystitis is an infection. Keep in mind: Infections in the urine are called UTIs. Cystitis is often caused by a UTI. Not all UTIs and cases of cystitis are bladder infections. Bladder infections are the most common type of cystitis. Symptoms of a bladder infection The infection causes inflammation in the urethra and bladder. This inflammation causes many of the symptoms. The most common symptoms of a bladder infection are: Pain or burning when urinating Having to go more often than normal Feeling like you need to go right away Only a small amount of urine comes out Blood in urine Discomfort in your belly (abdomen), often in the lower belly, above the pubic bone Cloudy, strong, or bad-smelling urine Unable to urinate (retention) Urinary incontinence Fever Loss of appetite Older adults may also feel confused. Causes of a bladder infection Bladder infections are not contagious. You can't get one from someone else, from a toilet seat, or from sharing a bath. The most common cause of bladd (more content not included)... [facility] Procedure note 12-08-2023 Note Date & Type Note Facility 12-08-2023 Procedure note [facility] Procedure note 12-08-2023 Note Date & Type Note Facility 12-08-2023 Procedure note [facility] Evaluation note Note Date & Type Note Facility Evaluation note Diagnosis Onset Date Encounter for screening for malignant neoplasm of colon acute [facility] Work Phone: Evaluation note Note Date & Type Note Facility Evaluation note No assessment information availa ble [facility] Work Phone: History and physical note Note Date & Type Note Facility History and physical note Note Date/Time December 08, 2023 8:48am [facility] Medical Records Department [address] [place] [address] History & Physical Exam 12/08/23 0847 MR#: [id number] Acct: [id number] Name: GABRIELA PAPPAS Rep #:[id number] : 1970 53 From: Blue chawla MD PCP: Dr. Tristen Perez MD Status:[facility] Location: [place] [address] HPI - General HPI Narrative GABRIELA PAPPAS, is a 53 M who presents for screening colonoscopy. The patient has never had a colonoscopy in the past. He denies any abdominal pain or blood in stool. He has no family history of colon cancer. He is on no blood thinners. [facility] Medical History (Updated 12/07/23 @ 08:41 by Alejandro Manzanares) Non-smoker Ruptured ear drum Shoulder injury Wears glasses Home Medications sildenafil 100 mg tablet 50 mg PO DAILY PRN sexual activity 10/24/23 [History Last Taken Unknown] Allergy/AdvReac Type Severity Reaction Status Date / Time No Known Allergies Allergy Verified 12/08/23 08:25 Social History (Updated 10/24/23 @ 11:02 by Nanci Flores) household members: significant other current occupational status: employed current occupation: [employer] Smoking Status: Never smoker alcohol intake: current alcohol intake frequency: holidays/special occasions only Past Medical/Surgical History Planned Operation Planned Operative Procedure/s: COLONOSCOPY Previous Hospitalizations/Surgeries HX Hospitalizations: No Any Problems With Anesthesia: No You/Your Family Experience Fever (Hyperthermia) With Anes: No Cholinesterase deficiency: No Cardiovascular Hx Hypertension: No Respiratory Hx Sleep Apnea: No Hx Respiratory Tract Infection/Cold (presently): No Do You Snore Loudly (louder than talking or can be heard): No Do You Often Feel Tired/ Fatigued/ Sleepy Dring Daytime?: No Has Anyone Observed You Stop Breathing During Sleep?: No Result (for STOP score): Negative Smoking Status: Never smoker Neurological Does patient have nerve stimulator: No Miscellaneous Recent Exposure to Contagious Disease: No Allergies No Known Allergies Allergy (Verified 12/08/23 08:25) Vital Signs Vital Signs Vital Signs: 12/08/23 08:25 12/08/23 08:25 Temperature 98.2 F Temperature Source Temporal Pulse Rate 67 Respiratory Rate 16 Respiratory Pattern Normal Blood Pressure 127/81 H Blood Pressure Mean 96 Blood Pressure Source Monitor Blood Pressure Position Semi-Fowlers Blood Pressure Location Left Arm Pulse Ox 98 Oxygen Delivery Method Room Air Weight Weight: 163 lb 2.273 oz Body Mass Index (BMI) 24.0 Physical Exam Const alert and oriented x3 HEENT normocephalic Eyes PERRL Resp normal respiratory effort and normal air movement Cardio regular rate and regular rhythm GI soft to palpation, non-tender and non-distended Extremity normal to inspection Assessment & Plan Assessment/Plan (1) Encounter for screening for malignant neoplasm of colon: PLAN: I explained endoscopy in detail to the patient. I explained the risks including but not limited to stroke or heart attack with anesthesia, perforationof the GI tract, bleeding, infection. I explained that any of these could necessitate further emergency surgery. The patient understands and all questions were answered sufficiently. The patient wishes to proceed with procedure. Blue Eddy MD Pager: [facility] [address] [place] [address], [address] [place] [phone] Office: Surgery Risks - Colonoscopy Risks Include but are not Limited To: Risks include but are not limited to: Bleeding, perforation requiring further surgery, inability to complete colonoscopy requiring barium enema. 12/08/23 0848 <Electronically signed by Blue Eddy MD> Cosigner Signature (if applicable): CC: Dr. Blue Eddy MD; Dr. Tristen Perez MD~ Signed [facility] Work Phone: Reason for referral (narrative) Note Date & Type Note Facility Reason for referral (narrative) No reason for referral information available [facility] Work Phone: Chief Complaint and Reason for Visit Chief Complaint Amb Documentation Reason for Visit Encounter for screen ing for malignant neoplasm of colon Chief Complaint Admit Date EORDERS April 11, 2025 4:20p m Advance Directives No Advanced Directives Records Found Advance Directive Response Recorded Date/ Time Living Will No December 07 8:34am Power of Abrading Machine Tender No December 07, 2023 8:34am Summary Purpose Family History No Family History Records FoundNo Family History Records FoundNo Family History Records Found Additional Source Comments Care Teams (unrecognized sec tion and content) Team Status: Active Member Role Status Dates Dr. Tristen Perez MD Family Provider Active Dr. Tristen Perez MD Primary Care Provider Active Team Status: Active Member Role Status Dates Dr. Tristen Perez MD Primary Care Provider Active [facility] Attending Provider Active Team Status: Active Member Role Status Dates Dr. Tristen Perez MD Primary Care Provider, Referr ing Provider Active Dr. Blue Eddy MD Attending Provider, Other Provider Active Team Status: Inactive Member Role Status Dates Dr. Tristen Perez MD Primary Care Provider, Attend ing Provider Active Team Status: Inactive Member Role Status Dates Dr. Tristen Perez MD Primary Care Provider, Referr ing Provider Active Dr. Blue Eddy MD Attending Provider Active Team Status: Inactive Member Role Status Dates Dr. Tristen Perez MD Primary Care Provider Active Start: February 05, 2025 End: February 05, 2025 Dr. Tristen Perez MD Attending Provider Active Start: February 05, 2025 End: February 05, 2025 Dr. Tristen Perez MD Referring Provider Active Start: February 05, 2025 End: February 05, 2025 Team Status: Inactive Member Role Status Dates Dr. Tristen Perez MD Primary Care Provider Active Start: April 11, 2025 End: April 11, 2025 Dr. Tristen Perez MD Attending Provider Active Start: April 11, 2025 End: April 11, 2025 Dr. Tristen Perez MD Referring Provider Active Start: April 11, 2025 End: April 11, 2025 (unrecognized sect ion and content) No Status Records FoundNo Status Records FoundNo Status Records Found INFORMATION SOURCE (unrecogn ized section and content) DATE CREATED AUTHOR 01/23/2025 [facility] DATE CREATED AUTHOR AUTHOR'S ORGANIZ ATION 01/23/2025 [facility] DATE CREATED AUTHOR AUTHOR'S ORGANIZ ATION 04/18/2025 [facility] Goals (unrecognized section and content) Goals may be documented in a n alternate sectionGoals may be documented in an alternate section FOR RECORDS PERTAINING TO PATIENTS WHO ARE OR HAVE BEEN ENROLLED IN A CHEMICAL DEPENDENCY/SUBSTANCEABUSE PROGRAM, SOME INFORMATION MAY BE OMITTED. This clinical summary was aggregated from multiple sources. Caution should be exercised in using it in the provision of clinical care. This summary normalizes information from multiple sources, and as a consequence, information in this document may materially change the coding, format and clinical context of patient data. In addition, data may be omitted in some cases. CLINICAL DECISIONS SHOULD BE BASED ON THE PRIMARY CLINICAL RECORDS. Digital Message Display [facility]. provides no warranty or guarantee of the accuracy or completeness of information in this document.
[2025-10-03 18:21] LABS: AST(SGOT) 26 U/L (<=37); Alanine Aminotransfer ALT/SGPT 35 U/L (<=46); Albumin, Serum 4.8 g/dL (3.5-5.0); Alkaline Phosphatase 84 U/L (40-129); Anion Gap 10 (5-15); BUN 22 mg/dL (4-19); BUN/Creat Ratio 19.7 RATIO (10-20); CORTISOL PM 7.54 ug/dL (2.68-10.50); Calcium,Total 10.0 mg/dL (7.6-11.0); Carbon Dioxide 25.7 mmol/L (21.0-32.0); Chloride 100 mmol/L (98-108); Cholesterol 239 mg/dL (<=200); Globulin 3.2 g/dL (2.2-4.2); Glucose 81 mg/dL (70-99); Low Density Lipoprotein Calc. 177 mg/dL; Potassium 5.0 mmol/L (3.3-5.1); T3 Total - Triiodothyronine 1.30 ng/mL (0.80-2.00); T4 Total, Thyroxin 7.7 ug/dL (4.5-12.1); Triglycerides 99 mg/dL; Very Low Density Lipoprotein 20 mg/dL (5-40); Vitamin B12 454 pg/mL (180-914); Vitamin D,25 Hydroxy 32.0 ng/mL (30-100); cholesterol:hdl ratio screen 5.40
[2025-10-03 19:01] LABS: CRP 6.02 mg/L (0.0-3.0); Iron 91 ug/dL (65-175); Iron Binding Capacity,Total 296 ug/dL (250-450); Iron Binding Capacity,Unsat 205 ug/dL (228-428); Magnesium 2.1 mg/dL (1.5-2.2)
[2025-10-05 07:07] LABS: HOMOCYSTEINE 15.0 umol/L (0.0-14.5)
[2025-10-09 12:09] LABS: PROLACTIN 19.4 ng/mL (3.6-25.2); Testosterone, % Free 2.78 % (1.50-4.20); Testosterone, Free 7.70 ng/dL (5.00-21.00)
== END | disposition home or self-care (01) ==
LOC: MTLAB 16:03
PROVIDERS: PCP Family Medicine
DX: Z00.00 Encounter for general adult medical examination without abnormal findings (principal); F32.9 Major depressive disorder, single episode, unspecified; R68.89 Other general symptoms and signs; M25.50 Pain in unspecified joint; L65.9 Nonscarring hair loss, unspecified; R41.3 Other amnesia; R68.82 Decreased libido; R63.5 Abnormal weight gain; Z12.5 Encounter for screening for malignant neoplasm of prostate
CPT/HCPCS: 36415; 80053; 80061; 82306; 82533; 82607; 82627; 82670; 83002; 83036; 83090; 83525; 83540; 83550; 83735; 84146; 84270; 84305; 84402; 84403; 84436; 84443; 84480; 85025; 86140; 82626